=== PATIENT | female | born 1950 | race Caucasian/White ===

== ENCOUNTER 2016-12-22 09:44 | Emergency (ER) | payer MEDICARE, OTHER ==
[2016-12-22] MEDS ORDERED: Morphine 2 MG/ML Syringe IVPUSH ONE ×2 (10:06→11:29)
[2016-12-22] MEDS ORDERED: Sodium Chloride 0.9% 5 ML Syringe FLUSH PRN (10:07)
[2016-12-22] MEDS ORDERED: Aspirin 81 MG Tab.Chew PO ONE (10:07)
--- NOTE | 2016-12-22 10:21 | EDM.PDOC ---
ED HISTORY OF PRESENT ILLNESS - General Chief Complaint: Chest Pain Stated Complaint: CHEST PAIN,DIZZINESS Time Seen by Provider: 12/22/16 10:16 Source of Information: Reports: Patient, Family (, daughter) - History of Present Illness INITIAL COMMENTS - FREE TEXT/NARRATIVE: 66-year-old female presents with chest pain radiating to her left arm and shoulder blade. Onset of symptoms began at 7:30 this morning. She she rates her pain in the out of 10 in severity. She describes the pain as sharp and fullness. She denies shortness of breath or palpations. She denies current headache. She denies nausea, vomiting, epigastric pain, jaw pain. She denies any neurological complaints or weakness in her extremities or difficulty with speech her ambulation. She did not taking any medication for her chest pain at home. She had no relief with rest. She's had no history of prior cardiac issues , but reports that she's had intermittent chest pain on and off for the last 2 weeks. Reports this episode this morning is much more severe and she's had in the past and she has not experienced any arm pain prior to today's episode. She believes she's had a stress test 2 years ago and this was unremarkable. She does have a history of coronary artery disease in her family her father has had a CABG and her brother has had stents for coronary artery disease. She does take verapamil and Topamax both for her headaches and has had these for years. 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 She does have a history of hypothyroidism and is scheduled for a thyroid ultrasound. She takes levothyroxine for her thyroid. Symptom Onset Date: 12/22/16 Symptom Onset Time: 07:30 Timing/Duration: Reports: Hour(s): Severity: moderate Location, General: Reports: chest, back, upper extremity, left Quality: Reports: Pressure, Sharp Improves with: Reports: Medication (nitroglycerin) Worsens with: Reports: None Associated Symptoms (General): Reports: chest pain. Denies: confusion, diaphoresis, fever/chills, nausea/vomiting, shortness of breath, syncope, weakness - Related Data Allergies/ADRs: Allergies Allergy/AdvReac Type Severity Reaction Status Date / Time cortisone [Cortisone] Allergy Headache Verified 12/22/16 10:41 hydrocodone Allergy Itching Verified 12/22/16 10:41 Penicillins Allergy Rash, hives Verified 12/22/16 10:41 wheat Allergy Headache Verified 12/22/16 10:41 environmental allergens Allergy positive Uncoded 12/22/16 10:41 allergy testing to this FOOD ALLERGIES Allergy Headache Uncoded 12/22/16 10:41 Home Meds: Home Meds Ca Cmb No.1/Vit D3/B-6/FA/B12 [Vitamin D3 1,000 Unit] 2,000 unit PO DAILY [History] ClonazePAM [KlonoPIN] 0.5 mg PO BEDTIME PRN 12/21/13 [History] Eletriptan [Relpax] 40 mg PO DAILY PRN 12/21/13 [History] Escitalopram [Lexapro] 20 mg PO DAILY 12/21/13 [History] Fish Oil/[place]-3 Fatty Acids [Fish Oil] 1,000 mg PO DAILY 12/21/13 [History] Gabapentin [Neurontin] 300 - 600 mg PO DAILY PRN 12/21/13 [History] Multivitamin [Daily Multiple Vitamin] 1 tab PO DAILY 12/21/13 [History] Rup Rub 1 applic TOP BID PRN 12/21/13 [History] Topiramate 100 mg PO BEDTIME 12/21/13 [History] Verapamil HCl [Verapamil ER] 360 mg PO BEDTIME 12/21/13 [History] tiZANidine [Zanaflex] 0.5 - 1 tab PO Q8H PRN 12/21/13 [History] valACYclovir HCl [Valtrex] 500 mg PO BID PRN 12/21/13 [History] Ascorbate Calcium [Calcium Ascorbate] 500 mg PO BID 05/09/16 [History] Hydrocortisone Acetate 25 mg RC DAILY PRN 05/09/16 [History] Promethazine [Phenergan] 25 mg PO Q8H PRN 05/09/16 [History] Levothyroxine [Synthroid] 88 mcg PO ACBREAKFAST 12/22/16 [History] Past Medical History HEENT History: Reports: Impaired vision Respiratory History: Reports: Bronchitis, recurrent Gastrointestinal History: Reports: Chronic constipation, GERD, Hemorrhoids, Hiatal hernia, Other (see below) Other Gastrointestinal History: Frank's esophagus Genitourinary History: Reports: UTI, recurrent 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: Polycystic Ovaries, Musculoskeletal History: Reports: Fracture Neurological History: Reports: Migraines Psychiatric History: Reports: Anxiety, Depression Endocrine/Metabolic History: Reports: Hypothyroidism - Infectious Disease History Infectious Disease History: Reports: Chicken pox, Measles - Past Surgical History HEENT Surgical History: Reports: Adenoidectomy, Tonsillectomy GI Surgical History: Reports: Appendectomy, Colonoscopy, Polypectomy Female Surgical History: Reports: Breast reduction, Hysterectomy, Salpingo- oophorectomy Neurological Surgical History: Reports: Lumbar spine Musculoskeletal Surgical History: Reports: None Social & Family History - Tobacco Use Smoking Status *Q: Never Smoker Second Hand Smoke Exposure: Yes - Caffeine Use Caffeine Use: Reports: Coffee, Tea - Alcohol Use Days Per Week of Alcohol Use: 1 Number of Drinks Per Day: 2 Total Drinks Per Week: 2 - Recreational Drug Use Recreational Drug Use: No ED ROS GENERAL - Review of Systems Review Of Systems: See Below Constitutional: Reports: no symptoms. Denies: diaphoresis HEENT: Reports: No symptoms. Denies: Vertigo Respiratory: Reports: No Symptoms Cardiovascular: Reports: Chest pain, Lightheadedness. Denies: Blood pressure problem, Dyspnea on exertion, Edema, Orthopnea, Palpitations, Syncope Endocrine: Reports: fatigue. Denies: high glucose GI/Abdominal: Denies: Abdominal pain, Diarrhea, Nausea, Vomiting : Reports: no symptoms Musculoskeletal: Reports: shoulder pain (left shoulder blade) Skin: Denies: cyanosis, diaphoresis Neurological: Reports: Dizziness. Denies: Confusion, Headache, Numbness, Paresthesia, Syncope, Tingling, Trouble Speaking, Difficulty Walking, Weakness, Change in Speech, Gait Disturbance Psychiatric: Reports: No symptoms Hematologic/Lymphatic: Reports: no symptoms Immunologic: Reports: no symptoms ED EXAM, GENERAL - Physical Exam Exam: See Below Exam Limited By: No limitations General Appearance: alert, WD/WN, no apparent distress Eye Exam: bilateral eye: EOMI, PERRL Ears: normal external exam, normal canal, hearing grossly normal, normal TMs Ear Exam: bilateral ear: TM red Nose: normal inspection, normal mucosa, no blood Throat/Mouth: Normal inspection, Normal lips, Normal teeth, Normal gums, Normal oropharynx, Normal voice, No airway compromise Head: atraumatic, normocephalic Neck: normal inspection, supple, non-tender, full range of motion. No: carotid bruit, limited range of motion, lymphadenopathy (L), lymphadenopathy (R), tender lateral, tender midline, thyromegaly Respiratory/Chest: no respiratory distress, lungs clear, normal breath sounds, no accessory muscle use, chest non-tender Cardiovascular: normal peripheral pulses, regular rate, rhythm, no JVD, no murmur Peripheral Pulses: 2+: carotid (L), carotid (R), radial (L), radial (R), dorsalis pedis (L), dorsalis pedis (R) GI/Abdominal: normal bowel sounds, soft, non tender, no organomegaly, no distention, no abnormal bruit, no mass Back Exam: normal inspection, full range of motion Extremities: normal inspection, normal range of motion, non-tender, no pedal edema, normal capillary refill Neurological: alert, oriented, CN II-XII intact, normal cognition, normal gait, normal reflexes, no motor/sensory deficits Psychiatric: normal affect, normal mood Skin Exam: Warm, Dry, Intact, Normal color, No rash Lymphatic: no adenopathy EKG INTERPRETATION EKG Date: 12/22/16 Time: 10:00 Rhythm: NSR [place]: normal P-wave: present QRS: normal ST-T: normal QT: normal Comparison: NA - no prior EKG EKG Interpretation Comments: Normal sinus rhythm Course - Vital Signs Last Recorded V/S: Last Vital Signs Temp 98 F 12/22/16 09:55 Pulse 64 12/22/16 09:55 Resp 12 12/22/16 09:55 BP 128/58 L 12/22/16 11:41 Pulse Ox 92 L 12/22/16 09:55 - Orders/Labs/Meds Orders: Active Orders 24 hr Category Date Time Status EKG Documentation Completion [RC] ASDIRECTED Care 12/22/16 10:06 Active Peripheral IV Care [RC] . DIRECTED Care 12/22/16 10:07 Active Chest 2V [CR] Stat Exams 12/22/16 10:39 Taken TROPONIN I [CHEM] Timed Lab 12/22/16 12:55 Received Sodium Chloride 0.9% [Syrex Flush] Med 12/22/16 10:07 Active 5 ml FLUSH Q8HR PRN Peripheral IV Insertion Adult [OM.PC] Routine Oth 12/22/16 10:07 Ordered EKG 12 Lead [EK] Routine Ther 12/22/16 10:06 Ordered Medication Orders Sodium Chloride (Syrex Flush) 5 ml FLUSH Q8HR PRN PRN Reason: Keep Vein Open Last Admin: 12/22/16 10:26 Dose: 5 ml Labs: Laboratory Tests 12/22/16 12/22/16 12/22/16 Range/Units 10:15 10:15 10:15 WBC 6.0 (5.0-10.0) 10^3/uL RBC 4.25 (3.80-5.50) 10^6/uL Hgb 13.9 (12.0-16.0) g/dL Hct 40.7 (37.0-47.0) % MCV 95.8 H (82.0-92.0) fL MCH 32.7 H (27.0-31.0) pg MCHC 34.2 (32.0-36.0) g/dL RDW 12.4 (11.5-14.5) % Plt Count 278 (150-300) 10^3/uL MPV 8.2 (7.4-10.4) fL Neut % (Auto) 57.1 (50.0-70.0) % Lymph % (Auto) 26.1 (20.0-40.0) % [place] % (Auto) 8.9 H (2.0-8.0) % Eos % (Auto) 6.9 H (1.0-3.0) % Baso % (Auto) 1.0 (0.0-1.0) % Neut # (Auto) 3.4 (2.5-7.0) 10^3/uL Lymph # (Auto) 1.6 (1.0-4.0) 10^3/uL [place] # (Auto) 0.5 (0.1-0.8) 10^3/uL Eos # (Auto) 0.4 H (0.1-0.3) 10^3/uL Baso # (Auto) 0.1 (0.0-0.1) 10^3/uL D-Dimer, Quantitative (<400) ng/mL Sodium 140 (136-145) mmol/L Potassium 4.0 (3.3-5.3) mmol/L Chloride 103 (98-115) mmol/L Carbon Dioxide 24.8 (21.0-32.0) mmol/L BUN 14 (6-25) mg/dL Creatinine 0.74 (0.51-1.17) mg/dL Est Cr Clr Drug Dosing 54.44 mL/min Estimated GFR (MDRD) > 60 mL/min Glucose 95 (70-110) mg/dL Calcium 9.1 (8.7-10.3) mg/dL Total Bilirubin 0.5 (0.2-1.0) mg/dL AST 22 (15-37) U/L ALT 25 (12-78) U/L Alkaline Phosphatase 72 (46-116) IU/L Creatine Kinase 111 (26-276) U/L CK-MB (CK-2) 0.80 (0.00-4.30) ng/mL Troponin I 0.08 H* (0.00-0.070) ng/mL Total Protein 6.8 (6.4-8.2) g/dL Albumin 4.03 (3.00-4.80) g/dL TSH, Ultra Sensitive 0.580 (0.340-4.820) uIU/mL /02/02 Range/Units 10:15 WBC (5.0-10.0) 10^3/uL RBC (3.80-5.50) 10^6/uL Hgb (12.0-16.0) g/dL Hct (37.0-47.0) % MCV (82.0-92.0) fL MCH (27.0-31.0) pg MCHC (32.0-36.0) g/dL RDW (11.5-14.5) % Plt Count (150-300) 10^3/uL MPV (7.4-10.4) fL Neut % (Auto) (50.0-70.0) % Lymph % (Auto) (20.0-40.0) % [place] % (Auto) (2.0-8.0) % Eos % (Auto) (1.0-3.0) % Baso % (Auto) (0.0-1.0) % Neut # (Auto) (2.5-7.0) 10^3/uL Lymph # (Auto) (1.0-4.0) 10^3/uL [place] # (Auto) (0.1-0.8) 10^3/uL Eos # (Auto) (0.1-0.3) 10^3/uL Baso # (Auto) (0.0-0.1) 10^3/uL D-Dimer, Quantitative < 100 (<400) ng/mL Sodium (136-145) mmol/L Potassium (3.3-5.3) mmol/L Chloride (98-115) mmol/L Carbon Dioxide (21.0-32.0) mmol/L BUN (6-25) mg/dL Creatinine (0.51-1.17) mg/dL Est Cr Clr Drug Dosing mL/min Estimated GFR (MDRD) mL/min Glucose (70-110) mg/dL Calcium (8.7-10.3) mg/dL Total Bilirubin (0.2-1.0) mg/dL AST (15-37) U/L ALT (12-78) U/L Alkaline Phosphatase (46-116) IU/L Creatine Kinase (26-276) U/L CK-MB (CK-2) (0.00-4.30) ng/mL Troponin I (0.00-0.070) ng/mL Total Protein (6.4-8.2) g/dL Albumin (3.00-4.80) g/dL TSH, Ultra Sensitive (0.340-4.820) uIU/mL Meds: Medications Generic Name Dose Route Start Last Admin Trade Name Freq PRN Reason Stop Dose Admin Sodium Chloride 5 ml 12/22/16 10:07 12/22/16 10:26 Syrex Flush FLUSH 5 ml Q8HR PRN Administration Keep Vein Open Discontinued Medications Generic Name Dose Route Start Last Admin Trade Name Freq PRN Reason Stop Dose Admin Al Hydroxide/Mg Hydroxide 45 ml 12/22/16 10:26 12/22/16 10:32 Gi Cocktail PO 12/22/16 10:27 45 ml ONETIME ONE Administration Al Hydroxide/Mg Hydroxide 45 ml 12/22/16 10:24 12/22/16 11:40 Gi Cocktail PO 12/22/16 10:25 Not Given ONETIME ONE Aspirin 324 mg 12/22/16 10:07 12/22/16 10:18 Aspirin PO 12/22/16 10:08 324 mg ONETIME ONE Administration Morphine Sulfate 2 mg 12/22/16 10:06 12/22/16 10:19 Morphine IVPUSH 12/22/16 10:07 2 mg ONETIME ONE Administration Morphine Sulfate 2 mg 12/22/16 11:29 12/22/16 11:41 Morphine IVPUSH 12/22/16 11:30 2 mg ONETIME ONE Administration Morphine Sulfate Confirm 12/22/16 11:29 12/22/16 11:40 Morphine Administered 12/22/16 11:30 Not Given Dose 2 mg .ROUTE .STK-MED ONE Nitroglycerin 0.4 mg 12/22/16 10:29 12/22/16 10:31 Nitrostat SL 12/22/16 10:40 0.4 mg Q5M PRN Administration Chest Pain Nitroglycerin Confirm 12/22/16 10:31 12/22/16 11:41 Nitrostat Administered 12/22/16 10:32 Not Given Dose 0.4 mg .ROUTE .STK-MED ONE - Re-Assessments/Exams Free Text/Narrative Re-Assessment/Exam: 12/22/16 13:14 Patient was given a 4 chewable aspirin upon arrival. IV access was initiated and she was given 2 mg of morphine. She rated her pain a 6/10 and no change. She was given sublingual nitroglycerin and she reports her pain was a 1/10. EKG showed normal sinus rhythm lab work was ordered and troponin was high end of normal 0.08. Approximately one hour her pain started to increase again in the left chest and shoulder blade radiating and again 6/10 she was given 2 more milligrams of morphine and another sublingual nitroglycerin. She reports improvement again of her chest pain with a sublingual nitroglycerin. Transfer was initiated as she is having recurrence of pain. [facility] the patient. Recommended beginning IV heparin. I thousand bolus of IV heparin was given. Heparin was run at 10 mL an hour. Ground ambulance transfer was initiated. EKG was repeated and again shows normal sinus rhythm at 1250 in the afternoon. Troponin was redrawn and currently pending. Her remaining lab work CBC, BMP, d-dimer, TSH are all normal. Departure - Departure Time of Disposition: 13:33 Disposition: DC/Tfer to Critical Access [facility] Reason for Transfer *Q: Primary PCI Indicated Condition: good Clinical Impression: Unstable angina Referrals: Haylee Andrade, [employer] [Primary Care Provider] - Forms: ED Department Discharge - My Orders Last 24 Hours: My Active Orders 12/22/16 10:06 EKG Documentation Completion [RC] ASDIRECTED EKG 12 Lead [EK] Routine 12/22/16 10:07 Peripheral IV Care [RC] . DIRECTED Sodium Chloride 0.9% [Syrex Flush] 5 ml FLUSH Q8HR PRN Peripheral IV Insertion Adult [OM.PC] Routine 12/22/16 10:39 Chest 2V [CR] Stat 12/22/16 12:55 TROPONIN I [CHEM] Timed - Assessment/Plan Last 24 Hours: My Active Orders 12/22/16 10:06 EKG Documentation Completion [RC] ASDIRECTED EKG 12 Lead [EK] Routine 12/22/16 10:07 Peripheral IV Care [RC] . DIRECTED Sodium Chloride 0.9% [Syrex Flush] 5 ml FLUSH Q8HR PRN Peripheral IV Insertion Adult [OM.PC] Routine 12/22/16 10:39 Chest 2V [CR] Stat 12/22/16 12:55 TROPONIN I [CHEM] Timed Assessment:: Unstable angina Plan: Transfer to a [facility]. Dr Herbert accepted transfer. Patient is in stable condition,she was started on IV heparin 5000 bolus and heparin drip.
[2016-12-22] MEDS ORDERED: GI Cocktail 45 ML BOTTLE PO ONE ×2 (10:24→10:26)
[2016-12-22] MEDS ORDERED: Nitroglycerin 0.4 MG Tab.SL SL PRN (10:29)
[2016-12-22] MEDS ORDERED: Nitroglycerin 0.4 MG Tab.SL ONE (10:31)
[2016-12-22 10:55] LABS: CHLORIDE,CL 103 mmol/L (98-115); SODIUM,NA 140 mmol/L (136-145)
[2016-12-22] MEDS ORDERED: Morphine 2 MG/ML Syringe ONE (11:29)
[2016-12-22] MEDS ORDERED: Heparin Sodium/D5W 25,000 UNITS/250 ML BAG IV SCH (12:45)
[2016-12-22] MEDS ORDERED: Heparin Sodium 5,000 Units/ML Vial IVPUSH ONE (12:45)
[2016-12-22 16:37] VITALS: BP 127/59
== END 2016-12-22 13:00 ==
LOC: KA.ED 09:44
DX: I20.0 Unstable angina (principal); K21.9 Gastro-esophageal reflux disease without esophagitis; F41.9 Anxiety disorder, unspecified; F32.9 Major depressive disorder, single episode, unspecified; E03.9 Hypothyroidism, unspecified; Z88.0 Allergy status to penicillin; Z88.8 Allergy status to other drugs, medicaments and biological substances; Z79.899 Other long term (current) drug therapy
CPT/HCPCS: 36415; 71020; 80053; 82550; 82553; 84443; 84484; 85025; 85379; 93005; 96374; 96375; 96376; 99285; A9270; J1644; J2270

== ENCOUNTER 2017-08-07 06:50 | Emergency (ER) | payer MEDICARE, OTHER ==
[2017-08-07] MEDS ORDERED: Sodium Chloride 0.9% 1,000 ML IV ONE (07:19)
[2017-08-07] MEDS ORDERED: HYDROmorphone 1 MG/ML Syringe IVPUSH ONE (07:19)
[2017-08-07] MEDS ORDERED: Ondansetron 4 MG/2 ML SDV IVPUSH ONE (07:20)
--- NOTE | 2017-08-07 07:32 | EDM.PDOC ---
ED HPI GENERAL MEDICAL PROBLEM - General Chief Complaint: Gastrointestinal Problem Stated Complaint: ABDOMINAL PAIN Time Seen by Provider: 08/07/17 07:15 Source of Information: Reports: Patient History Limitations: Reports: No Limitations - History of Present Illness INITIAL COMMENTS - FREE TEXT/NARRATIVE: 67 YO WF presents to ER complaining of epigastric abdominal pain x 30 minutes. Pt states she woke from sleep with severe epigastric pain radiating to her back with associated nausea without vomiting. Pt denies any chest pain, shortness of breath, dizziness or diaphoresis. Pt denies any previous similar episode. Pt states she had a lap gabby 6-7 years ago and denies any history of pancreatitis. Pt denies constipation or diarrhea with last BM last night before bed. Onset: Sudden Onset Date: 08/07/17 Onset Time: 06:30 Location: Reports: Abdomen, Back Quality: Reports: Stabbing Severity: Moderate Improves with: Reports: None Worsens with: Reports: None Associated Symptoms: Reports: Nausea/Vomiting - Related Data Allergies Allergy/AdvReac Type Severity Reaction Status Date / Time cortisone [Cortisone] Allergy Headache Verified 08/07/17 07:46 hydrocodone Allergy Itching Verified 08/07/17 07:46 Penicillins Allergy Rash, hives Verified 08/07/17 07:46 wheat Allergy Headache Verified 08/07/17 07:46 environmental allergens Allergy positive Uncoded 12/22/16 10:41 allergy testing to this FOOD ALLERGIES Allergy Headache Uncoded 12/22/16 10:41 Home Meds: Home Meds Ca Cmb No.1/Vit D3/B-6/FA/B12 [Vitamin D3 1,000 Unit] 2,000 unit PO DAILY [History] ClonazePAM [KlonoPIN] 0.5 mg PO BEDTIME PRN 12/21/13 [History] Eletriptan [Relpax] 40 mg PO DAILY PRN 12/21/13 [History] Escitalopram [Lexapro] 20 mg PO DAILY 12/21/13 [History] Fish Oil/[place]-3 Fatty Acids [Fish Oil] 1,000 mg PO DAILY 12/21/13 [History] Gabapentin [Neurontin] 300 - 600 mg PO DAILY PRN 12/21/13 [History] Multivitamin [Daily Multiple Vitamin] 1 tab PO DAILY 12/21/13 [History] Rup Rub 1 applic TOP BID PRN 12/21/13 [History] Topiramate 100 mg PO BEDTIME 12/21/13 [History] Verapamil HCl [Verapamil ER] 360 mg PO BEDTIME 12/21/13 [History] tiZANidine [Zanaflex] 0.5 - 1 tab PO Q8H PRN 12/21/13 [History] valACYclovir HCl [Valtrex] 500 mg PO BID PRN 12/21/13 [History] Ascorbate Calcium [Calcium Ascorbate] 500 mg PO BID 05/09/16 [History] Hydrocortisone Acetate 25 mg RC DAILY PRN 05/09/16 [History] Promethazine [Phenergan] 25 mg PO Q8H PRN 05/09/16 [History] Levothyroxine [Synthroid] 88 mcg PO ACBREAKFAST 12/22/16 [History] Famotidine [Pepcid] 20 mg PO BID #30 tablet 08/07/17 [Rx] Past Medical History HEENT History: Reports: Impaired Vision Respiratory History: Reports: Bronchitis, Recurrent Gastrointestinal History: Reports: Chronic Constipation, GERD, Hemorrhoids, Hiatal Hernia, Other (See Below) Other Gastrointestinal History: Frank's esophagus Genitourinary History: Reports: UTI, Recurrent 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: Polycystic Ovaries, Musculoskeletal History: Reports: Fracture Neurological History: Reports: Migraines Psychiatric History: Reports: Anxiety, Depression Endocrine/Metabolic History: Reports: Hypothyroidism - Infectious Disease History Infectious Disease History: Reports: Chicken Pox, Measles - Past Surgical History Female Surgical History: Reports: Breast Reduction, Hysterectomy, Salpingo- Oophorectomy Neurological Surgical History: Reports: Lumbar Spine Social & Family History - Tobacco Use Smoking Status *Q: Never Smoker Second Hand Smoke Exposure: Yes - Caffeine Use Caffeine Use: Reports: Coffee, Tea Caffeine Use Comment: mostly decaffenated coffee - Alcohol Use Days Per Week of Alcohol Use: 1 Number of Drinks Per Day: 2 Total Drinks Per Week: 2 - Recreational Drug Use Recreational Drug Use: No ED ROS GENERAL - Review of Systems Review Of Systems: See Below Constitutional: Reports: No Symptoms HEENT: Reports: No Symptoms Respiratory: Reports: No Symptoms Cardiovascular: Reports: No Symptoms Endocrine: Reports: No Symptoms GI/Abdominal: Reports: Abdominal Pain, Nausea : Reports: No Symptoms Musculoskeletal: Reports: No Symptoms Skin: Reports: No Symptoms Neurological: Reports: No Symptoms Psychiatric: Reports: No Symptoms Hematologic/Lymphatic: Reports: No Symptoms Immunologic: Reports: No Symptoms ED EXAM, GENERAL - Physical Exam Exam: See Below Exam Limited By: No Limitations General Appearance: Alert, WD/WN, No Apparent Distress Head: Atraumatic, Normocephalic Neck: Normal Inspection, Supple, Non-Tender, Full Range of Motion Respiratory/Chest: No Respiratory Distress, Lungs Clear, Normal Breath Sounds, No Accessory Muscle Use, Chest Non-Tender Cardiovascular: Normal Peripheral Pulses, Regular Rate, Rhythm, No Edema, No Gallop, No JVD, No Murmur, No Rub GI/Abdominal: Normal Bowel Sounds, Soft, No Organomegaly, No Distention, No Abnormal Bruit, No Mass, Pelvis Stable, Tender (epigastrum) Back Exam: Normal Inspection, Full Range of Motion, NT Extremities: Normal Inspection, Normal Range of Motion, Non-Tender, Normal Capillary Refill, No Pedal Edema Neurological: Alert, Oriented, CN II-XII Intact, Normal Cognition, Normal Gait, Normal Reflexes, No Motor/Sensory Deficits Psychiatric: Normal Affect, Normal Mood Skin Exam: Warm, Dry, Intact, Normal Color, No Rash Lymphatic: No Adenopathy EKG INTERPRETATION EKG Date: 08/07/17 Time: 07:05 Rhythm: NSR Rate (Beats/Min): 65 [place]: Normal P-Wave: Present QRS: Normal ST-T: Normal QT: Normal Comparison: No Change Course - Vital Signs Last Recorded V/S: Last Vital Signs Temp 35.6 C 08/07/17 07:00 Pulse 69 08/07/17 07:00 Resp 20 08/07/17 07:00 BP 110/78 08/07/17 07:00 Pulse Ox 94 L 08/07/17 07:00 - Orders/Labs/Meds Orders: Active Orders 24 hr Category Date Time Status EKG Documentation Completion [RC] ASDIRECTED Care 08/07/17 07:31 Active URINALYSIS W/MICROSCOPIC [UA W/MICROSCOPIC] [URIN] Stat Lab 08/07/17 07:30 Uncollected Sodium Chloride 0.9% [Normal Saline] 1,000 ml Med 08/07/17 07:19 Active IV .BOLUS EKG 12 Lead [EK] Routine Ther 08/07/17 07:31 Ordered Medication Orders Sodium Chloride (Normal Saline) 1,000 mls @ 999 mls/hr IV .BOLUS ONE Stop: 08/07/17 08:19 Last Admin: 08/07/17 07:10 Dose: 999 mls/hr Labs: Laboratory Tests 08/07/17 08/07/17 Range/Units 07:00 07:00 WBC 6.0 (5.0-10.0) 10^3/uL RBC 4.07 (3.80-5.50) 10^6/uL Hgb 12.6 (12.0-16.0) g/dL Hct 38.7 (37.0-47.0) % MCV 95.2 H (82.0-92.0) fL MCH 31.0 (27.0-31.0) pg MCHC 32.5 (32.0-36.0) g/dL RDW 12.7 (11.5-14.5) % Plt Count 253 (150-300) 10^3/uL MPV 8.2 (7.4-10.4) fL Neut % (Auto) 46.5 L (50.0-70.0) % Lymph % (Auto) 37.9 (20.0-40.0) % [place] % (Auto) 9.5 H (2.0-8.0) % Eos % (Auto) 5.1 H (1.0-3.0) % Baso % (Auto) 1.0 (0.0-1.0) % Neut # (Auto) 2.7 (2.5-7.0) 10^3/uL Lymph # (Auto) 2.3 (1.0-4.0) 10^3/uL [place] # (Auto) 0.6 (0.1-0.8) 10^3/uL Eos # (Auto) 0.3 (0.1-0.3) 10^3/uL Baso # (Auto) 0.1 (0.0-0.1) 10^3/uL Sodium 143 (136-145) mmol/L Potassium 3.6 (3.3-5.3) mmol/L Chloride 107 (98-115) mmol/L Carbon Dioxide 24.0 (21.0-32.0) mmol/L BUN 19 (6-25) mg/dL Creatinine 0.78 (0.51-1.17) mg/dL Est Cr Clr Drug Dosing TNP Estimated GFR (MDRD) > 60 mL/min Glucose 107 (70-110) mg/dL Calcium 9.2 (8.7-10.3) mg/dL Total Bilirubin 0.3 (0.2-1.0) mg/dL AST 59 H (15-37) U/L ALT 46 (12-78) U/L Alkaline Phosphatase 85 (46-116) IU/L Total Protein 6.9 (6.4-8.2) g/dL Albumin 3.90 (3.00-4.80) g/dL Lipase 144 (73-393) U/L Meds: Medications Generic Name Dose Route Start Last Admin Trade Name Freq PRN Reason Stop Dose Admin Sodium Chloride 1,000 mls @ 999 mls/hr 08/07/17 07:19 08/07/17 07:10 Normal Saline IV 08/07/17 08:19 999 mls/hr .BOLUS ONE Administration Discontinued Medications Generic Name Dose Route Start Last Admin Trade Name Freq PRN Reason Stop Dose Admin Hydromorphone HCl 1 mg 08/07/17 07:19 08/07/17 07:05 Dilaudid IVPUSH 08/07/17 07:20 1 mg ONETIME ONE Administration Ondansetron HCl 4 mg 08/07/17 07:20 08/07/17 07:10 Zofran IVPUSH 08/07/17 07:21 4 mg ONETIME ONE Administration Departure - Departure Time of Disposition: 07:53 Disposition: Home, Self-Care 01 Preliminary Cause of *Q: Cardiac Arrest Condition: Good Clinical Impression: Abdominal pain Qualifiers: Abdominal location: epigastric Qualified Code(s): R10.13 - Epigastric pain Gastritis Qualifiers: Gastritis type: unspecified gastritis Chronicity: acute Gastritis bleeding: without bleeding Qualified Code(s): K29.00 - Acute gastritis without bleeding - Discharge Information Prescriptions: Famotidine [Pepcid] 20 mg PO BID #30 tablet Instructions: Gastritis, Adult, [id number], Abdominal Pain, Adult Referrals: Donna Jansen PA-C [Primary Care Provider] - Forms: ED Department Discharge - My Orders Last 24 Hours: My Active Orders 08/07/17 07:19 Sodium Chloride 0.9% [Normal Saline] 1,000 ml IV .BOLUS 08/07/17 07:30 URINALYSIS W/MICROSCOPIC [UA W/MICROSCOPIC] [URIN] Stat 08/07/17 07:31 EKG Documentation Completion [RC] ASDIRECTED EKG 12 Lead [EK] Routine - Assessment/Plan Last 24 Hours: My Active Orders 08/07/17 07:19 Sodium Chloride 0.9% [Normal Saline] 1,000 ml IV .BOLUS 08/07/17 07:30 URINALYSIS W/MICROSCOPIC [UA W/MICROSCOPIC] [URIN] Stat 08/07/17 07:31 EKG Documentation Completion [RC] ASDIRECTED EKG 12 Lead [EK] Routine Assessment:: 1. abdominal pain 2. gastritis Plan: 1. discharge home 2. pepcid 20mg PO BID 3. follow up with Donna Roberts this week for recheck 4. return to ER for worsening symptoms
[2017-08-07 07:36] LABS: CHLORIDE,CL 107 mmol/L (98-115); SODIUM,NA 143 mmol/L (136-145)
[2017-08-07 07:45] VITALS: BP 110/78
== END 2017-08-07 08:10 | disposition home or self-care (01) ==
LOC: KA.ED 06:50
DX: K29.00 Acute gastritis without bleeding (principal); Z88.5 Allergy status to narcotic agent; Z88.0 Allergy status to penicillin; Z88.8 Allergy status to other drugs, medicaments and biological substances; Z79.899 Other long term (current) drug therapy
CPT/HCPCS: 80053; 83690; 85025; 96361; 96374; 96375; 99284; J1170; J2405; J7030; 93005

== ENCOUNTER 2018-12-30 09:48 | Day surgery (SDC) | payer MEDICARE, OTHER ==
[~2018-12-30 09:48] MED LIST: Lactated Ringers 1,000 ML IV SCH; Sodium Chloride 0.9% 10 ML Syringe FLUSH PRN
[2018-12-30] MEDS ORDERED: Propofol 200 MG/20 ML SDV ONE (10:02)
[2018-12-30] MEDS ORDERED: Midazolam 1 MG/ML 2 ML SDV ONE (10:02)
[2018-12-30] MEDS ORDERED: Midazolam 1 MG/ML 2 ML SDV IV ONE (11:06)
[2018-12-30] MEDS ORDERED: Propofol 200 MG/20 ML SDV IV ONE (11:06)
[2018-12-30] MEDS ORDERED: Lidocaine 2% 5 ML SDV INJECT ONE (11:06)
--- NOTE | 2018-12-30 11:14 | PCM.PN ---
- General Info Date of Service: 12/30/18 - Review of Systems Systems Review Comment:: 68-year-old female referred for EGD and colonoscopy. Patient has a history of anti-reflux procedure for acid reflux. She has noted some increased symptoms of upper abdominal bloating and fullness. She also has a history of colon polyps as well as a previous colon resection for benign disease. She is scheduled for colonoscopy as well. I have discussed the proposed EGD and colonoscopy with the patient. She agrees to proceed accepting risks. Her recent history and physical is reviewed and no significant changes are noted. - Patient Data Med Orders - Current: Current Medications Lactated Ringer's (Ringers, Lactated) 1,000 mls @ 30 mls/hr IV ASDIRECTED SHIKHA Sodium Chloride (Saline Flush) 10 ml FLUSH Q8HR PRN PRN Reason: keep vein open Discontinued Medications Midazolam HCl (Versed 1 Mg/Ml) Confirm Administered Dose 2 mg .ROUTE .STK-MED ONE Stop: 12/30/18 10:03 Propofol (Diprivan 20 Ml) Confirm Administered Dose 400 mg .ROUTE .STK-MED ONE Stop: 12/30/18 10:03 - Problem List Review Problem List Initiated/Reviewed/Updated: Yes - My Orders Last 24 Hours: My Active Orders 12/29/18 13:31 Resuscitation Status Routine 12/30/18 09:45 Patient to Empty Bladder [RC] ASDIRECTED Peripheral IV Care [RC] . DIRECTED Verify Patient Consent Obtain [RC] ASDIRECTED Vital Signs [RC] PER UNIT ROUTINE Lactated Ringers [Ringers, Lactated] 1,000 ml IV ASDIRECTED Sodium Chloride 0.9% [Saline Flush] 10 ml FLUSH Q8HR PRN Peripheral IV Insertion Adult [OM.PC] Routine 12/30/18 Breakfast Nothing Per Oral Diet [DIET] - Assessment Assessment:: Abdominal bloating History of acid reflux with prior anti-reflux procedure Change in bowel habits and history of colon polyps - Plan Plan:: EGD and colonoscopy
--- NOTE | 2018-12-30 12:02 | PCM.OPNOTE ---
- General Post-Op/Procedure Note Date of Surgery/Procedure: 12/30/18 Operative Procedure(s): EGD with Biopsy. Colonoscopy Findings: Intact Anti-reflux procedure wrap Frank's Esophagus without inflammation or nodule Moderate sized hemorrhoids Normal post op colon Pre Op Diagnosis: History of GERD. Change in Bowel Habits Post-Op Diagnosis: Frank's Esophagus. Hemorrhoids. Normal post op colon Anesthesia Technique: MAC Primary Surgeon: Jose Prado Pathology: Biopsies of Gastric Antrum and GE Jct. EBL in mLs: 3 Complications: None Condition: Good
[2018-12-30 15:23] VITALS: BP 132/69
--- NOTE | 2018-12-30 17:09 | OR ---
DATE OF SURGERY: 12/30/2018 SURGEON: Jose Prado MD PREOPERATIVE DIAGNOSIS: Abdominal bloating with history of Frank's esophagus and change in bowel habits. POSTOPERATIVE DIAGNOSIS: Frank's esophagus, normal postoperative colon, and hemorrhoids. OPERATION PERFORMED: Esophagogastroduodenoscopy with biopsy and colonoscopy. INDICATIONS FOR SURGERY: This 68-year-old female who has been having some upper abdominal fullness and bloating sensation. She does have a known history of Frank's esophagus and a previous anti-reflux procedure and is referred for EGD. She also has a known history of colon polyps and has been having change in her bowel habits recently and colonoscopy is planned as well. FINDINGS: On upper endoscopy, the patient does have visible Frank's changes in the lower part of her esophagus. These extend for approximately 2 cm. No nodules or acute inflammation was seen. The patient has had a Chantelle wrap, anti - reflux procedure, and the wrap appears to be intact without visible indication of breakdown. The gastric mucosa and the remainder of the esophagus mucosa appear normal as does the duodenum. On colonoscopy, the patient has had a prior left colon resection. The remaining colon segments appear normal. The anastomosis is normal without indication of stenosis and no polyps were seen. The patient has moderate-sized external and internal hemorrhoids. DESCRIPTION OF PROCEDURE: The patient was taken to the operating room. She was given intravenous sedation and with her in the left lateral decubitus position, the esophagus was intubated with the Olympus gastroscope. This was carefully advanced under direct visualization through the esophagus, stomach, and into the duodenum where examination to the third portion was performed. After carefully examining the duodenum, the scope was withdrawn back into the stomach where full examination including retroflexed examination of the fundus was performed. Random biopsies of the gastric antrum were taken to rule out H pylori. At the GE junction, the area of the anti-reflux procedure was carefully examined. The Frank's segment was biopsied to rule out dysplasia. The esophagus was then re - examined as the scope was removed, and attention was turned to the colon. Digital rectal exam shows no rectal masses, although external hemorrhoids were noted. The Olympus colonoscope was inserted into the rectum. Retroflexed examination of the rectal canal was performed. The scope was then carefully advanced under direct visualization through the entire length of the colon until her cecum is reached. This proceeded without difficulty. The patient has had a significant segment of her left colon removed. The anastomosis was easily cannulated. The cecum was identified. The ileocecal valve and appendiceal orifice were reviewed. The light was noted to transilluminate the abdominal wall in the right lower quadrant. The ileocecal valve was cannulated and the terminal ileum also examined. The scope was then slowly withdrawn sequentially re-examining the colonic segments until the entire colon and rectum had been fully examined. The scope was removed, and the patient was taken from the operating room in satisfactory condition. ESTIMATED BLOOD LOSS: 3 mL. COMPLICATIONS: None. PROGNOSIS: Good. /[id number]/MODL MTDD
== END 2018-12-30 13:33 | disposition home or self-care (01) ==
LOC: KA.SDS 09:48
PROVIDERS: ATTEND Surgery
DX: K22.70 Barrett's esophagus without dysplasia (principal); K21.0 Gastro-esophageal reflux disease with esophagitis; K31.89 Other diseases of stomach and duodenum; K64.8 Other hemorrhoids; K64.4 Residual hemorrhoidal skin tags; R19.4 Change in bowel habit; E03.9 Hypothyroidism, unspecified; F41.9 Anxiety disorder, unspecified; F32.9 Major depressive disorder, single episode, unspecified; J45.909 Unspecified asthma, uncomplicated; G43.909 Migraine, unspecified, not intractable, without status migrainosus; Z88.5 Allergy status to narcotic agent; Z88.0 Allergy status to penicillin; Z88.8 Allergy status to other drugs, medicaments and biological substances; Z90.49 Acquired absence of other specified parts of digestive tract; Z86.010 Personal history of colon polyps; Z79.84 Long term (current) use of oral hypoglycemic drugs; Z79.899 Other long term (current) drug therapy; Z98.890 Other specified postprocedural states
CPT/HCPCS: 00813; J2001; J2250; J2704

== ENCOUNTER 2019-12-07 20:40 | Emergency (ER) | payer MEDICARE, OTHER ==
[2019-12-07 20:49] VITALS: BP 187/79; PULSE 73
--- NOTE | 2019-12-07 20:54 | EDM.PDOC ---
ED HPI GENERAL MEDICAL PROBLEM - General Chief Complaint: Headache Stated Complaint: gill/migraine Time Seen by Provider: 12/07/19 20:54 Source of Information: Reports: Patient History Limitations: Reports: No Limitations - History of Present Illness INITIAL COMMENTS - FREE TEXT/NARRATIVE: Seen in the clinic today with reevaluation. Was started on methylprednisone in attempt to reduce inflammation as headache seemingly are starting in the scapular region paraspinal muscle region, and radiating into her head. Chronic headache history there is seemingly worsened since she has been unable to get massage due to the pandemic. Underwent trigger point injections we believe on the which made some improvement but did not resolve tension. Was trying to get massage but due to pandemic restrictions it is not been essentual service although in this case, it is proving to be essentially necessary. Her medication and visit rate is up since unable to get massage. Onset: Unknown/Unsure Duration: Week(s):, Chronic Location: Reports: Head, Neck Quality: Reports: Pressure, Sharp Severity: Moderate Improves with: Reports: None Worsens with: Reports: Movement Context: Reports: Other Associated Symptoms: Reports: No Other Symptoms - Related Data Allergies Allergy/AdvReac Type Severity Reaction Status Date / Time bacitracin [From Cortisporin] Allergy Cannot Verified 12/07/19 20:50 Remember cortisone [Cortisone] Allergy Headache Verified 12/07/19 20:50 hydrocodone Allergy Itching Verified 12/07/19 20:50 hydrocortisone Allergy Cannot Verified 12/07/19 20:50 [From Cortisporin] Remember neomycin [From Cortisporin] Allergy Cannot Verified 12/07/19 20:50 Remember Penicillins Allergy Rash, hives Verified 12/07/19 20:50 pneumococcal vaccine Allergy Cannot Verified 12/07/19 20:50 [From Prevnar 13 (PF)] Remember polymyxin B Allergy Cannot Verified 12/07/19 20:50 [From Cortisporin] Remember wheat Allergy Headache Verified 12/07/19 20:50 environmental allergens Allergy positive Uncoded 12/30/18 10:16 allergy testing to this FOOD ALLERGIES Allergy Headache Uncoded 12/30/18 10:16 Home Meds: Home Meds ClonazePAM [KlonoPIN] 0.5 mg PO BEDTIME PRN 12/21/13 [History] Escitalopram [Lexapro] 20 mg PO DAILY 12/21/13 [History] Topiramate 150 mg PO BEDTIME 12/21/13 [History] Verapamil HCl [Verapamil ER] 300 mg PO BEDTIME 12/21/13 [History] tiZANidine [Zanaflex] 4 mg PO DAILY PRN 12/21/13 [History] valACYclovir HCl [Valtrex] 500 mg PO ASDIRECTED PRN 12/21/13 [History] Levothyroxine [Synthroid] 88 mcg PO ACBREAKFAST 12/22/16 [History] Acyclovir [Zovirax 5% Oint] 1 applic TOP ASDIRECTED 06/02/18 [History] Albuterol Sulfate 2.5 mg IH ASDIRECTED 06/02/18 [History] Codeine Phosphate/Guaifenesin [Cheratussin AC Syrup] 1 each PO Q4H PRN 06/02/18 [History] Dexlansoprazole [Dexilant] 60 mg PO DAILY 06/02/18 [History] Eletriptan HBr 40 mg PO ASDIRECTED PRN 06/02/18 [History] Hydrocortisone Acetate [Anusol-Hc] 1 supp RC Q4H PRN 06/02/18 [History] Hydrocortisone [Proctosol-HC] 1 applic TOP QID PRN 06/02/18 [History] Fexofenadine/Pseudoephedrine [Krupa-D 12 Hour] 1 each PO ASDIRECTED PRN [History] Fluticasone Propionate [Flonase Allergy Relief] 9.9 ml NS ASDIRECTED PRN [History] Gabapentin [Neurontin] 600 mg PO ASDIRECTED PRN 12/24/18 [History] Levothyroxine [Synthroid] 132 mcg PO WEEKLY 12/24/18 [History] metFORMIN HCl [Metformin HCl] 500 mg PO BID 12/24/18 [History] Past Medical History HEENT History: Reports: Impaired Vision Cardiovascular History: Reports: Angina Respiratory History: Reports: Bronchitis, Recurrent Gastrointestinal History: Reports: Chronic Constipation, GERD, Hemorrhoids, Hiatal Hernia, Other (See Below) Other Gastrointestinal History: Frank's esophagus Genitourinary History: Reports: UTI, Recurrent SCRIPT READER History: Reports: Polycystic Ovaries, Musculoskeletal History: Reports: Fracture Neurological History: Reports: Migraines Psychiatric History: Reports: Anxiety, Depression Endocrine/Metabolic History: Reports: Hypothyroidism Hematologic History: Reports: None Oncologic (Cancer) History: Reports: None - Infectious Disease History Infectious Disease History: Reports: None - Past Surgical History Head Surgeries/Procedures: Reports: None Female Surgical History: Reports: Breast Reduction, Hysterectomy, Salpingo- Oophorectomy Neurological Surgical History: Reports: Lumbar Spine Social & Family History - Family History Family Medical History: Noncontributory - Caffeine Use Caffeine Use: Reports: Coffee, Tea Caffeine Use Comment: mostly decaffenated coffee ED ROS GENERAL - Review of Systems Review Of Systems: Comprehensive ROS is negative, except as noted in HPI. ED EXAM, GENERAL - Physical Exam Exam: See Below Free Text/Narrative:: Alert oriented in mild distress. HEENT is negative to discharge nor deformity. PERRLA no icterus no injection, minimal photophobia to examination. [place] moist mucous membranes. Neck soft supple with no lymphadenopathy tension on the posterior aspect radiating into the base of the skull in the occipital region. Tension in the scapular region bilateral. Tension feeling to her scalp pulling from the occipital region inducing her headache. Thorax is clear with no wheezes no crackles. Cardiac is regular no appreciated murmur. 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 Course - Vital Signs Last Recorded V/S: Last Vital Signs Temp 35.8 C L 12/07/19 20:42 Pulse 73 12/07/19 20:42 Resp 18 12/07/19 20:42 BP 187/79 H 12/07/19 20:42 Pulse Ox 97 12/07/19 20:42 - Orders/Labs/Meds Meds: Medications Discontinued Medications Generic Name Dose Route Start Last Admin Trade Name Mari PRN Reason Stop Dose Admin Ketorolac Tromethamine 60 mg 12/07/19 21:02 Toradol IM 12/07/19 21:03 ONETIME ONE Ondansetron HCl 4 mg 12/07/19 21:02 Zofran Odt PO 12/07/19 21:03 ONETIME ONE Departure - Departure Time of Disposition: 21:12 Disposition: Home, Self-Care 01 Condition: Good Clinical Impression: Tension headache, chronic, Paraspinal muscle spasm, Nausea - Discharge Information *PRESCRIPTION DRUG MONITORING PROGRAM REVIEWED*: Not Applicable *COPY OF PRESCRIPTION DRUG MONITORING REPORT IN PATIENT AMIRA: Not Applicable Referrals: Donna Jansen PA-C [Primary Care Provider] - Forms: ED Department Discharge Additional Instructions: Home now and rest. Continue your medications as directed. Contact your massage clinic and explained that you need massage due to medical necessity. Apply heat, avoid getting chilled, avoid extraneous positioning, specifically with how you sleep with pillow. Application of warmth, along with your medications you've been prescribed, and the benefit of getting a massage is this is deemed medically necessitated as you have seemingly gone downhill in your improvement status since pandemic restrictions were applied. Follow-up as needed. Sepsis Event Note - Evaluation Sepsis Screening Result: No Definite Risk - Focused Exam Vital Signs: Vital Signs Temp Pulse Resp BP Pulse Ox 12/07/19 20:42 35.8 C L 73 18 187/79 H 97 Date Exam was Performed: 12/07/19 Time Exam was Performed: 21:03 - Problem List & Annotations (1) Tension headache, chronic Status: Acute Priority: Medium Qualifiers: Intractability: intractable Qualified Code(s): G44.221 - Chronic tension- type headache, intractable (2) Paraspinal muscle spasm SNOMED Code(s): 85436222 Code(s): M62.830 - MUSCLE SPASM OF BACK Status: Chronic Priority: Medium (3) Nausea SNOMED Code(s): 807526490 Code(s): R11.0 - NAUSEA Status: Chronic Priority: Medium - Problem List Review Problem List Initiated/Reviewed/Updated: Yes - Assessment/Plan Plan: Home now and rest. Continue your medications as directed. Contact your massage clinic and explained that you need massage due to medical necessity. Apply heat, avoid getting chilled, avoid extraneous positioning, specifically with how you sleep with pillow. Application of warmth, along with your medications you've been prescribed, and the benefit of getting a massage is this is deemed medically necessitated as you have seemingly gone downhill in your improvement status since pandemic restrictions were applied. Follow-up as needed.
[2019-12-07] MEDS: Ketorolac 60 MG/2 ML SDV IM ONE (21:08)
[2019-12-07] MEDS: Ondansetron 4 MG Tab.DIS PO ONE (21:11)
[2019-12-07] MEDS: Ketorolac 60 MG/2 ML SDV ONE (21:11)
[2019-12-07] MEDS: Ondansetron 4 MG Tab.DIS ONE (21:11)
== END 2019-12-07 21:25 | disposition home or self-care (01) ==
LOC: KA.ED 20:40
DX: G44.229 Chronic tension-type headache, not intractable (principal); M62.838 Other muscle spasm; R11.0 Nausea; K21.9 Gastro-esophageal reflux disease without esophagitis; E03.9 Hypothyroidism, unspecified; F41.9 Anxiety disorder, unspecified; F32.9 Major depressive disorder, single episode, unspecified; Z88.5 Allergy status to narcotic agent; Z88.0 Allergy status to penicillin; Z88.1 Allergy status to other antibiotic agents; Z91.018 Allergy to other foods; Z79.899 Other long term (current) drug therapy; Z79.84 Long term (current) use of oral hypoglycemic drugs
CPT/HCPCS: 96372; 99283; 99284; A9270-GY; J1885

== ENCOUNTER 2020-09-24 17:48 | Observation (INO) | payer MEDICARE, OTHER ==
[2020-09-24] MEDS ORDERED: Ketorolac 30 MG/ML SDV IVPUSH ONE ×2 (17:58→20:33)
[2020-09-24] MEDS ORDERED: Sodium Chloride 0.9% 10 ML Syringe FLUSH PRN ×2 (17:58→19:14)
--- NOTE | 2020-09-24 18:04 | EDM.PDOC ---
ED HPI GENERAL MEDICAL PROBLEM - General Chief Complaint: Chest Pain Stated Complaint: LEFT CHEST PAIN/HEADACHE/BLURRED VISION Time Seen by Provider: 09/24/20 17:59 Source of Information: Reports: Patient, Family History Limitations: Reports: No Limitations - History of Present Illness INITIAL COMMENTS - FREE TEXT/NARRATIVE: 70 YO WF PRESENTS TO ER WITH EPISODE OF LEFT SIDED CHEST PAIN WHICH BEGAN TODAY AT 4PM. PT REPORTS EARLIER IN THE DAY SHE HAD A HEADACHE WITH BLURRED VISION WHICH RESOLVED AFTER A NAP. PT REPORTS SOON AFTER WAKING UP FROM HER NAP SHE DEVELOPED LEFT SIDED CHEST PRESSURE WITH INTERMITTENT STABBING PAINS. PT REPORTS LEFT ARM PAIN, NAUSEA WITHOUT VOMITING, MILD SHORTNESS OF BREATH. PT DENIES DIAPHORESIS, NO FEVER/CHILLS, NO RECENT ILLNESSES. PT REPORTS HISTORY OF MIGRAINE HEADACHES WHICH SHE TAKE VERAPAMIL DAILY. PT DENIES ANY KNOWN COVID EXPOSURES. PT DENIES ANY FOCAL NEUROLOGICAL DEFICITS. Onset: Today Onset Time: 16:00 Location: Reports: Head, Chest Quality: Reports: Ache Severity: Moderate Improves with: Reports: None Worsens with: Reports: None Associated Symptoms: Reports: Chest Pain, Headaches, Nausea/Vomiting, Shortness of Breath. 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 Left Chest Pain Score (Numeric/FACES): 10 Headache Pain Score (Numeric/FACES): 9 - Related Data Allergies Allergy/AdvReac Type Severity Reaction Status Date / Time bacitracin [From Cortisporin] Allergy Cannot Verified 09/24/20 18:45 Remember cortisone [Cortisone] Allergy Headache Verified 09/24/20 18:45 hydrocodone Allergy Itching Verified 09/24/20 18:45 hydrocortisone Allergy Cannot Verified 09/24/20 18:45 [From Cortisporin] Remember neomycin [From Cortisporin] Allergy Cannot Verified 09/24/20 18:45 Remember Penicillins Allergy Rash, hives Verified 09/24/20 18:45 pneumococcal vaccine Allergy Cannot Verified 09/24/20 18:45 [From Prevnar 13 (PF)] Remember polymyxin B Allergy Cannot Verified 09/24/20 18:45 [From Cortisporin] Remember wheat Allergy Headache Verified 09/24/20 18:45 environmental allergens Allergy positive Uncoded 09/24/20 18:45 allergy testing to this FOOD ALLERGIES Allergy Headache Uncoded 09/24/20 18:45 Home Meds: Home Meds Escitalopram [Lexapro] 20 mg PO DAILY 12/21/13 [History] Topiramate 150 mg PO BEDTIME 12/21/13 [History] tiZANidine [Zanaflex] 4 mg PO DAILY PRN 12/21/13 [History] valACYclovir HCl [Valtrex] 500 mg PO ASDIRECTED PRN 12/21/13 [History] Levothyroxine [Synthroid] 88 mcg PO ACBREAKFAST 12/22/16 [History] Hydrocortisone Acetate [Anusol-Hc] 1 supp RC Q4H PRN 06/02/18 [History] Hydrocortisone [Proctosol-HC] 1 applic TOP QID PRN 06/02/18 [History] Fexofenadine/Pseudoephedrine [Krupa-D 12 Hour] 1 each PO DAILY PRN 12/24/18 [History] Fluticasone Propionate [Flonase Allergy Relief] 9.9 ml NS BID PRN 12/24/18 [History] Gabapentin [Neurontin] 600 mg PO ASDIRECTED PRN 12/24/18 [History] Calcium Carbonate/Vitamin D3 [Calcium 500 + Vit D 400] 1 tab PO DAILY 12/08/19 [History] Cholecalciferol (Vitamin D3) [Vitamin D3] 2,000 unit PO DAILY 12/08/19 [History] Diclofenac Sodium 2 g TOP QID 12/08/19 [History] Fish Oil/[place]armen-3 Fatty Acids [Fish Oil 1,000 MG] 1 units PO DAILY 12/08/19 [History] LORazepam [Lorazepam] 0.5 mg PO BEDTIME 12/08/19 [History] Multivitamin 1 each PO DAILY 12/08/19 [History] Promethazine [Phenergan] 25 mg PO Q8H PRN 12/08/19 [History] RABEprazole Sodium [Aciphex] 20 mg PO DAILY 12/08/19 [History] SUMAtriptan Succ/Naproxen Sod [Treximet 85-500 mg Tablet] 1 tab PO ASDIRECTED PRN 12/08/19 [History] Docusate Sodium [Colace] 100 mg PO BID 09/24/20 [History] Verapamil HCl [Verapamil ER Pm] 300 mg PO DAILY 09/24/20 [History] Past Medical History HEENT History: Reports: Impaired Vision Cardiovascular History: Reports: Angina Respiratory History: Reports: Bronchitis, Recurrent Gastrointestinal History: Reports: Chronic Constipation, GERD, Hemorrhoids, Hiatal Hernia, Other (See Below) Other Gastrointestinal History: Frank's esophagus Genitourinary History: Reports: UTI, Recurrent 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 History: Reports: Polycystic Ovaries, Musculoskeletal History: Reports: Fracture Neurological History: Reports: Migraines Psychiatric History: Reports: Anxiety, Depression Endocrine/Metabolic History: Reports: Hypothyroidism Hematologic History: Reports: None Oncologic (Cancer) History: Reports: None - Infectious Disease History Infectious Disease History: Reports: None - Past Surgical History Head Surgeries/Procedures: Reports: None Female Surgical History: Reports: Breast Reduction, Hysterectomy, Salpingo- Oophorectomy Neurological Surgical History: Reports: Lumbar Spine Social & Family History - Family History Family Medical History: No Pertinent Family History - Caffeine Use Caffeine Use: Reports: Coffee, Tea Caffeine Use Comment: mostly decaffenated coffee ED ROS GENERAL - Review of Systems Review Of Systems: See Below Constitutional: Reports: No Symptoms HEENT: Reports: No Symptoms Respiratory: Reports: Shortness of Breath Cardiovascular: Reports: Chest Pain Endocrine: Reports: No Symptoms GI/Abdominal: Reports: Nausea : Reports: No Symptoms Musculoskeletal: Reports: Arm Pain Skin: Reports: No Symptoms Neurological: Reports: Headache. Denies: Trouble Speaking, Difficulty Walking, Change in Speech, Gait Disturbance Psychiatric: Reports: No Symptoms Hematologic/Lymphatic: Reports: No Symptoms Immunologic: Reports: No Symptoms ED EXAM, GENERAL - Physical Exam Exam: See Below Exam Limited By: No Limitations General Appearance: Alert, WD/WN, No Apparent Distress Eye Exam: Bilateral Eye: EOMI, PERRL Head: Atraumatic, Normocephalic Neck: Normal Inspection, Supple, Non-Tender, Full Range of Motion Respiratory/Chest: No Respiratory Distress, Lungs Clear, Normal Breath Sounds, No Accessory Muscle Use, Chest Non-Tender Cardiovascular: Normal Peripheral Pulses, Regular Rate, Rhythm, No Edema, No Gallop, No JVD, No Murmur, No Rub GI/Abdominal: Normal Bowel Sounds, Soft, Non-Tender, No Organomegaly, No Distention, No Abnormal Bruit, No Mass Back Exam: Normal Inspection, Full Range of Motion, NT Extremities: Normal Inspection, Normal Range of Motion, Non-Tender, Normal Capillary Refill, No Pedal Edema Neurological: Alert, Oriented, CN II-XII Intact, Normal Cognition, Normal Gait, Normal Reflexes, No Motor/Sensory Deficits Psychiatric: Normal Affect, Normal Mood Skin Exam: Warm, Dry, Intact, Normal Color, No Rash Lymphatic: No Adenopathy #1 Interpretation EKG Date: 09/24/20 Time: 17:54 Rhythm: NSR Rate (Beats/Min): 77 [place]: Normal P-Wave: Present QRS: Normal ST-T: Normal QT: Normal Comparison: No Change Course - Vital Signs Last Recorded V/S: Last Vital Signs Temp 97.4 F 09/24/20 17:59 Pulse 77 09/24/20 19:16 Resp 16 09/24/20 19:16 BP 166/82 H 09/24/20 19:16 Pulse Ox 97 09/24/20 19:16 - Orders/Labs/Meds Orders: Active Orders 24 hr Category Date Time Status Patient Status Manage Transfer [TRANSFER] Routine ADT 09/24/20 19:11 Active Patient Status [ADT] Routine ADT 09/24/20 19:14 Active Cardiac Monitoring [RC] CONTINUOUS Care 09/24/20 19:15 Active EKG Documentation Completion [RC] ASDIRECTED Care 09/24/20 17:59 Active Oxygen Therapy [RC] PRN Care 09/24/20 19:14 Active Peripheral IV Care [RC] . DIRECTED Care 09/24/20 17:58 Active Up ad Dee [RC] ASDIRECTED Care 09/24/20 19:14 Active VTE/DVT Education [RC] PER UNIT ROUTINE Care 09/24/20 19:14 Active Vital Signs [RC] Q4H Care 09/24/20 19:14 Active Heart Healthy Diet [DIET] Diet 09/24/20 Dinner Active BASIC METABOLIC PANEL,BMP [CHEM] AM Lab 09/25/20 05:11 Ordered CBC WITH AUTO DIFF [HEME] AM Lab 09/25/20 05:11 Ordered TROPONIN I [CHEM] AM Lab 09/25/20 05:11 Ordered TROPONIN I [CHEM] Routine Lab 09/25/20 00:00 Ordered Aspirin [Ecotrin] Med 09/25/20 09:00 Active 325 mg PO DAILY Morphine Med 09/24/20 19:14 Active 2 mg IVPUSH Q2H PRN Nitroglycerin [Nitro-Bid 2%] Med 09/24/20 23:30 Active 1 gm TOP Q6H Ondansetron [Zofran] Med 09/24/20 19:14 Active 4 mg IV Q4H PRN Sodium Chloride 0.9% [Normal Saline] 1,000 ml Med 09/24/20 18:41 Active IV .BOLUS Sodium Chloride 0.9% [Saline Flush] Med 09/24/20 17:58 Active 10 ml FLUSH Q8HR PRN Sodium Chloride 0.9% [Saline Flush] Med 09/24/20 19:14 Active 10 ml FLUSH Q8HR PRN Peripheral IV Insertion Adult [OM.PC] Routine Oth 09/24/20 17:58 Ordered Saline Lock Insert [OM.PC] Routine Oth 09/24/20 19:14 Ordered Resuscitation Status Routine Resus Stat 09/24/20 19:14 Ordered EKG 12 Lead [EK] Stat Ther 09/24/20 17:59 Ordered Medication Orders Aspirin (Ecotrin) 325 mg PO DAILY SHIKHA Sodium Chloride (Normal Saline) 1,000 mls @ 999 mls/hr IV .BOLUS ONE Stop: 09/24/20 19:41 Last Admin: 09/24/20 18:33 Dose: 999 mls/hr Documented by: KEARA Morphine Sulfate (Morphine) 2 mg IVPUSH Q2H PRN PRN Reason: Pain (severe 7-10) Nitroglycerin (Nitro-Bid 2%) 1 gm TOP Q6H SHIKHA Ondansetron HCl (Zofran) 4 mg IV Q4H PRN PRN Reason: Nausea/Vomiting Sodium Chloride (Saline Flush) 10 ml FLUSH Q8HR PRN PRN Reason: keep vein open Sodium Chloride (Saline Flush) 10 ml FLUSH Q8HR PRN PRN Reason: keep vein open Labs: Laboratory Tests 09/24/20 09/24/20 09/24/20 Range/Units 18:02 18:02 18:02 WBC 10.45 H (5.00-10.00) 10^3/uL RBC 3.88 (3.80-5.50) 10^6/uL Hgb 12.5 (12.0-16.0) g/dL Hct 36.9 L (37.0-47.0) % MCV 95.1 H (82.0-92.0) fL MCH 32.2 H (27.0-31.0) pg MCHC 33.9 (32.0-36.0) g/dL RDW 12.0 (11.5-14.5) % Plt Count 284 (150-400) 10^3/uL MPV 9.3 (7.4-10.4) fL Immature Gran % (Auto) 0.4 (0.0-5.0) % Neut % (Auto) 73.6 H (50.0-70.0) % Lymph % (Auto) 16.6 L (20.0-40.0) % [place] % (Auto) 7.8 (2.0-8.0) % Eos % (Auto) 1.0 (1.0-3.0) % Baso % (Auto) 0.6 (0.0-1.0) % Neut # (Auto) 7.70 H (2.50-7.00) 10^3/uL Lymph # (Auto) 1.73 (1.00-4.00) 10^3/uL [place] # (Auto) 0.82 H (0.10-0.80) 10^3/uL Eos # (Auto) 0.10 (0.10-0.30) 10^3/uL Baso # (Auto) 0.06 (0.00-0.10) 10^3/uL Immature Gran # (Auto) 0.04 (0.00-0.50) 10^3/uL PT 9.9 (9.2-11.2) SEC INR 1.0 (0.9-1.1) APTT 25.9 (22.8-31.4) SEC D-Dimer, Quantitative < 100 (<400) ng/mL Sodium 133 L (136-145) mmol/L Potassium 4.0 (3.5-5.1) mmol/L Chloride 98 (98-107) mmol/L Carbon Dioxide 27.1 (21.0-32.0) mmol/L Anion Gap 11.9 (5-15) mmol/L BUN 20 H (7-18) mg/dL Creatinine 0.77 (0.51-1.17) mg/dL Est Cr Clr Drug Dosing 49.53 mL/min Estimated GFR (MDRD) > 60 mL/min Glucose 118 (70-140) mg/dL Calcium 9.3 (8.7-10.3) mg/dL Magnesium (1.8-2.4) mg/dL Total Bilirubin 0.3 (0.2-1.0) mg/dL AST 12 L (15-37) U/L ALT 23 (14-63) U/L Alkaline Phosphatase 77 (46-116) U/L Creatine Kinase 86 (26-276) U/L CK-MB (CK-2) 1.33 (0.00-3.60) ng/mL Troponin I < 0.017 (0.000-0.056) ng/mL Total Protein 6.5 (6.4-8.2) g/dL Albumin 3.74 (3.40-5.00) g/dL 09/24/20 Range/Units 18:02 WBC (5.00-10.00) 10^3/uL RBC (3.80-5.50) 10^6/uL Hgb (12.0-16.0) g/dL Hct (37.0-47.0) % MCV (82.0-92.0) fL MCH (27.0-31.0) pg MCHC (32.0-36.0) g/dL RDW (11.5-14.5) % Plt Count (150-400) 10^3/uL MPV (7.4-10.4) fL Immature Gran % (Auto) (0.0-5.0) % Neut % (Auto) (50.0-70.0) % Lymph % (Auto) (20.0-40.0) % [place] % (Auto) (2.0-8.0) % Eos % (Auto) (1.0-3.0) % Baso % (Auto) (0.0-1.0) % Neut # (Auto) (2.50-7.00) 10^3/uL Lymph # (Auto) (1.00-4.00) 10^3/uL [place] # (Auto) (0.10-0.80) 10^3/uL Eos # (Auto) (0.10-0.30) 10^3/uL Baso # (Auto) (0.00-0.10) 10^3/uL Immature Gran # (Auto) (0.00-0.50) 10^3/uL PT (9.2-11.2) SEC INR (0.9-1.1) APTT (22.8-31.4) SEC D-Dimer, Quantitative (<400) ng/mL Sodium (136-145) mmol/L Potassium (3.5-5.1) mmol/L Chloride (98-107) mmol/L Carbon Dioxide (21.0-32.0) mmol/L Anion Gap (5-15) mmol/L BUN (7-18) mg/dL Creatinine (0.51-1.17) mg/dL Est Cr Clr Drug Dosing mL/min Estimated GFR (MDRD) mL/min Glucose (70-140) mg/dL Calcium (8.7-10.3) mg/dL Magnesium 2.3 (1.8-2.4) mg/dL Total Bilirubin (0.2-1.0) mg/dL AST (15-37) U/L ALT (14-63) U/L Alkaline Phosphatase (46-116) U/L Creatine Kinase (26-276) U/L CK-MB (CK-2) (0.00-3.60) ng/mL Troponin I (0.000-0.056) ng/mL Total Protein (6.4-8.2) g/dL Albumin (3.40-5.00) g/dL Meds: Medications Generic Name Dose Route Start Last Admin Trade Name Freq PRN Reason Stop Dose Admin Aspirin 325 mg 09/25/20 09:00 Ecotrin PO DAILY [facility] Sodium Chloride 1,000 mls @ 999 mls/hr 09/24/20 18:41 09/24/20 18:33 Normal Saline IV 09/24/20 19:41 999 mls/hr .BOLUS ONE Administration Morphine Sulfate 2 mg 09/24/20 19:14 Morphine IVPUSH Q2H PRN Pain (severe 7-10) Nitroglycerin 1 gm 09/24/20 23:30 Nitro-Bid 2% TOP Q6H [facility] Ondansetron HCl 4 mg 09/24/20 19:14 Zofran IV Q4H PRN Nausea/Vomiting Sodium Chloride 10 ml 09/24/20 17:58 Saline Flush FLUSH Q8HR PRN keep vein open Sodium Chloride 10 ml 09/24/20 19:14 Saline Flush FLUSH Q8HR PRN keep vein open Discontinued Medications Generic Name Dose Route Start Last Admin Trade Name Freq PRN Reason Stop Dose Admin Ketorolac Tromethamine 30 mg 09/24/20 17:58 09/24/20 18:33 Toradol IVPUSH 09/24/20 17:59 30 mg ONETIME ONE Administration Nitroglycerin 1 gm 09/24/20 18:56 09/24/20 19:00 Nitro-Bid 2% TOP 09/24/20 18:57 1 gm ONETIME ONE Administration Nitroglycerin Confirm 09/24/20 18:59 09/24/20 19:06 Nitro-Bid 2% Administered 09/24/20 19:00 Not Given Dose 1 gm .ROUTE .STK-MED ONE Ondansetron HCl 4 mg 09/24/20 18:49 09/24/20 18:53 Zofran IVPUSH 09/24/20 18:50 4 mg ONETIME ONE Administration - Radiology Interpretation Free Text/Narrative:: CT HEAD-NAD CXR-NAD Departure - Departure Time of Disposition: 19:09 Disposition: Refer to Observation Clinical Impression: Hyponatremia Chest pain Qualifiers: Chest pain type: unspecified Qualified Code(s): R07.9 - Chest pain, unspecified Hypertension Qualifiers: Hypertension type: unspecified Qualified Code(s): I10 - Essential (primary) hypertension Referrals: Savannah Noguera MD [Primary Care Provider] - Forms: ED Department Discharge Sepsis Event Note (ED) - Focused Exam Vital Signs: Vital Signs Temp Pulse Resp BP Pulse Ox 09/24/20 19:16 77 16 166/82 H 97 09/24/20 19:05 69 16 179/89 H 95 09/24/20 18:45 70 16 170/87 H 96 09/24/20 18:30 63 16 162/91 H 96 09/24/20 17:59 97.4 F 77 18 164/90 H 100 - My Orders Last 24 Hours: My Active Orders 09/24/20 17:58 Peripheral IV Care [RC] . DIRECTED Sodium Chloride 0.9% [Saline Flush] 10 ml FLUSH Q8HR PRN Peripheral IV Insertion Adult [OM.PC] Routine 09/24/20 17:59 EKG Documentation Completion [RC] ASDIRECTED EKG 12 Lead [EK] Stat 09/24/20 Dinner Heart Healthy Diet [DIET] 09/24/20 18:41 Sodium Chloride 0.9% [Normal Saline] 1,000 ml IV .BOLUS 09/24/20 19:11 Patient Status Manage Transfer [TRANSFER] Routine 09/24/20 19:14 Patient Status [ADT] Routine Oxygen Therapy [RC] PRN Up ad Dee [RC] ASDIRECTED VTE/DVT Education [RC] PER UNIT ROUTINE Vital Signs [RC] Q4H Morphine 2 mg IVPUSH Q2H PRN Ondansetron [Zofran] 4 mg IV Q4H PRN Sodium Chloride 0.9% [Saline Flush] 10 ml FLUSH Q8HR PRN Saline Lock Insert [OM.PC] Routine Resuscitation Status Routine 09/24/20 19:15 Cardiac Monitoring [RC] CONTINUOUS 09/24/20 23:30 Nitroglycerin [Nitro-Bid 2%] 1 gm TOP Q6H 09/25/20 00:00 TROPONIN I [CHEM] Routine 09/25/20 05:11 BASIC METABOLIC PANEL,BMP [CHEM] AM CBC WITH AUTO DIFF [HEME] AM TROPONIN I [CHEM] AM 09/25/20 09:00 Aspirin [Ecotrin] 325 mg PO DAILY - Assessment/Plan Admission H&P: Please use this note as an admission H&P Last 24 Hours: My Active Orders 09/24/20 17:58 Peripheral IV Care [RC] . DIRECTED Sodium Chloride 0.9% [Saline Flush] 10 ml FLUSH Q8HR PRN Peripheral IV Insertion Adult [OM.PC] Routine 09/24/20 17:59 EKG Documentation Completion [RC] ASDIRECTED EKG 12 Lead [EK] Stat 09/24/20 Dinner Heart Healthy Diet [DIET] 09/24/20 18:41 Sodium Chloride 0.9% [Normal Saline] 1,000 ml IV .BOLUS 09/24/20 19:11 Patient Status Manage Transfer [TRANSFER] Routine 09/24/20 19:14 Patient Status [ADT] Routine Oxygen Therapy [RC] PRN Up ad Dee [RC] ASDIRECTED VTE/DVT Education [RC] PER UNIT ROUTINE Vital Signs [RC] Q4H Morphine 2 mg IVPUSH Q2H PRN Ondansetron [Zofran] 4 mg IV Q4H PRN Sodium Chloride 0.9% [Saline Flush] 10 ml FLUSH Q8HR PRN Saline Lock Insert [OM.PC] Routine Resuscitation Status Routine 09/24/20 19:15 Cardiac Monitoring [RC] CONTINUOUS 09/24/20 23:30 Nitroglycerin [Nitro-Bid 2%] 1 gm TOP Q6H 09/25/20 00:00 TROPONIN I [CHEM] Routine 09/25/20 05:11 BASIC METABOLIC PANEL,BMP [CHEM] AM CBC WITH AUTO DIFF [HEME] AM TROPONIN I [CHEM] AM 09/25/20 09:00 Aspirin [Ecotrin] 325 mg PO DAILY Assessment:: 1. CHEST PAIN 2. HEADACHE 3. HYPERTENSION 4. HYPONATREMIA Plan: 1. ADMIT TO MEDICINE- DR ALONZO 2. ASA/NITRO 3. TROP I Q6 X 3 4. SUPPORTIVE CARE
[2020-09-24] MEDS ORDERED: Sodium Chloride 0.9% 1,000 ML IV ONE (18:41)
[2020-09-24 18:42] LABS: PTT,PARTIAL THROMBOPLSTIN TIME 25.9 SEC (22.8-31.4)
[2020-09-24 18:45] LABS: ANION GAP 11.9 mmol/L (5-15); CHLORIDE,CL 98 mmol/L (98-107); SODIUM,NA 133 mmol/L (136-145)
[2020-09-24] MEDS ORDERED: Ondansetron 4 MG/2 ML SDV IVPUSH ONE (18:49)
[2020-09-24] MEDS ORDERED: Nitroglycerin 2% Oint 1 GM UD Packet TOP ONE (18:56)
[2020-09-24] MEDS ORDERED: Nitroglycerin 2% Oint 1 GM UD Packet ONE (18:59)
--- NOTE | 2020-09-24 18:59 | CR ---
[id number] RAD/RAD Chest PA And Lateral EXAM: RAD Chest PA And Lateral CLINICAL DATA: BLURRED VISION COMPARISON: CORRELATION IS MADE WITH DECEMBER 22, 2018 FINDINGS: The lungs are clear. The cardiomediastinal contour is prominent but stable. The regional bones and soft tissues are unremarkable. IMPRESSION: NO ACUTE PROCESS. Sree Lewis MD 09/24/20 [id number] Thank you for allowing us to participate in the care of your patient.
--- NOTE | 2020-09-24 19:01 | CT ---
[id number] CT/CT Head WO IV EXAM: CT Head WO IV CLINICAL DATA: BLURRED VISION COMPARISON: CORRELATION IS MADE WITH AUGUST 21, 2019 FINDINGS: There is no mass or mass effect. There is no hemorrhage or hydrocephalus. There are no extra-axial fluid collections. There are no sites of abnormal attenuation. IMPRESSION: NO PLAIN CT EVIDENCE OF ACUTE INTRACRANIAL PROCESS. Sree Lewis MD 09/24/20 [id number] Thank you for allowing us to participate in the care of your patient.
[2020-09-24] MEDS ORDERED: Ondansetron 4 MG/2 ML SDV IV PRN (19:14)
[2020-09-24] MEDS ORDERED: Morphine 2 MG/ML SYRINGE IVPUSH PRN (19:14)
[2020-09-24] MEDS ORDERED: Alum Hydrox/Mag Hydrox/Simeth 30 ML, Lidocaine 2% 15 ML PO ONE ×2 (20:32)
[2020-09-24] MEDS ORDERED: Hydrocortisone 2.5% Crm 30 GM Tube TOP PRN (20:33)
[2020-09-24] MEDS ORDERED: SUMATRIPTAN SUCC PO PRN (20:33)
[2020-09-24] MEDS ORDERED: PSEUDOEPHEDRINE PO PRN (20:33)
[2020-09-24] MEDS ORDERED: FEXOFENADINE PO PRN (20:33)
[2020-09-24] MEDS ORDERED: Gabapentin 300 MG Cap PO PRN (20:33)
[2020-09-24] MEDS ORDERED: valACYclovir 500 MG Tab PO PRN (20:33)
[2020-09-24] MEDS ORDERED: Fluticasone Propionate Nasal Spray 16 GM Bottle NAS PRN (20:33)
[2020-09-24] MEDS ORDERED: NAPROXEN SOD PO PRN (20:33)
[2020-09-24] MEDS ORDERED: tiZANidine 4 MG Tab PO PRN (20:33)
[2020-09-24] MEDS ORDERED: Hydrocortisone Acetate 25 MG Supp RECTAL PRN (20:33)
[2020-09-24] MEDS ORDERED: Promethazine 6.25 MG/5 ML Liquid 10 ML UD Cup PO PRN (20:33)
[2020-09-24] MEDS ORDERED: methylPREDNISolone Sodium Succinate 125 MG/2 ML SDV IVPUSH ONE (20:34)
[2020-09-24] MEDS ORDERED: diphenhydrAMINE 50 MG/ML SDV IVPUSH ONE (20:35)
[2020-09-24] MEDS ORDERED: TOPIRAMATE 150 MG PO SCH (21:00)
[2020-09-24] MEDS: Topiramate 100 MG Tab PO SCH (22:23)
[2020-09-24] MEDS: LORazepam 0.5 MG Tab PO SCH (22:23)
[2020-09-24] MEDS: Diclofenac Sodium 1% Gel 100 GM Tube TOP SCH (22:24)
[2020-09-24] MEDS: Topiramate 25 MG Tab PO SCH (22:24)
[2020-09-24] MEDS: Docusate Sodium 100 MG Cap PO SCH (22:24)
[2020-09-24] MEDS: Nitroglycerin 2% Oint 1 GM UD Packet TOP SCH (23:28)
[2020-09-25] MEDS: Nitroglycerin 2% Oint 1 GM UD Packet TOP SCH ×2 (06:49→19:10)
[2020-09-25] MEDS: Levothyroxine 88 MCG Tab PO SCH (07:36)
[2020-09-25] MEDS: Omeprazole 20 MG Cap.CR PO SCH (07:36)
[2020-09-25 07:55] LABS: CHLORIDE,CL 102 mmol/L (98-107); SODIUM,NA 137 mmol/L (136-145)
[2020-09-25] MEDS: Fish Oil/Omega-3 Fatty Acids 1 Gm Cap PO SCH (08:15)
[2020-09-25] MEDS: Escitalopram 10 MG Tab PO SCH (08:22)
[2020-09-25] MEDS: Topiramate 25 MG Tab PO SCH ×2 (08:22→20:49)
[2020-09-25] MEDS: Calcium Citrate/Vitamin D3 315 MG-250 Unit Tab PO SCH (08:23)
[2020-09-25] MEDS: Docusate Sodium 100 MG Cap PO SCH ×2 (08:23→20:50)
[2020-09-25] MEDS: Multivitamins with Minerals/Iron/Folic Acid/Lycopene Tab PO SCH (08:23)
[2020-09-25] MEDS: Aspirin 325 MG Tab.EC PO SCH (08:24)
[2020-09-25] MEDS: Topiramate 100 MG Tab PO SCH ×2 (08:24→20:49)
[2020-09-25] MEDS: Cholecalciferol (Vitamin D3) 25 MCG Tab PO SCH (08:26)
[2020-09-25] MEDS: Diclofenac Sodium 1% Gel 100 GM Tube TOP SCH ×4 (08:27→20:52)
[2020-09-25] MEDS ORDERED: VERAPAMIL HCL 300 MG PO SCH (09:00)
[2020-09-25] MEDS: Losartan 25 MG Tab PO SCH (10:16)
[2020-09-25] MEDS ORDERED: Gabapentin 300 MG Cap PO PRN (12:21)
--- NOTE | 2020-09-25 13:48 | PN ---
PATIENT NAME: JOE RICE This is a 70-year-old white female who was admitted to the emergency room yesterday with left-sided chest pain which began at 4 p.m. yesterday afternoon. She reported that earlier in the day she had a headache with blurred vision, which resolved after a nap. Soon after she woke up from her nap, she developed left-sided chest pressure with intermittent stabbing pains. She reports left arm pain, nausea without vomiting, and mild shortness of breath. The patient denied any diaphoresis. No recent fever or chills or illness. She does have a history of migraine headaches and this has been a problem and she was admitted. She does have morphine scheduled for pain, but to her knowledge, she does not recall getting any. She does have a history of migraine headache as previously stated. She is on verapamil as well as topiramate. She has depression with anxiety and takes escitalopram as well as lorazepam. 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 She has hypothyroidism and is taking levothyroxine. She does have a p.r.n. order for Neurontin. She has allergies and takes fexofenadine/pseudoephedrine as needed. She has gastroesophageal reflux disease and is taking AcipHex. She takes docusate sodium for a stool softener/constipation. She takes several dietary supplements including multivitamin, fish oil/omega-3 fatty acids, vitamin D, as well as calcium. When I was visiting with the patient this morning, she said that she did have relief from her headache with some nitroglycerin paste, which also relieved her chest pain. Her serial troponins have been negative. She states that her headache is starting to come back this morning. She did have elevated blood pressure is 168/90 at 8:30 last night and it was 167/83 at 10 o'clock last night. At 4 this morning, it was 124/67, and this morning at 7 a.m., it was 134/67. The patient states she has been checking her blood pressure at home and it has been elevated this past week. She currently does not take anything for her blood pressure. She is on verapamil, but that is actually prescribed to her for migraine prophylaxis. Her sodium was slightly low at 133. BUN was slightly high at 20 with a normal range being 7-18. AST was low, which is not clinically significant. As previously stated, her serial troponins were negative. She did receive Toradol in the emergency room, which must have been the medication that helps her headache. We did discuss discharge, however, I think she should stay one more day to make sure that she is feeling better. PHYSICAL EXAMINATION: VITAL SIGNS: Temperature is 97.4, pulse is 81, respirations 16, blood pressure 134/67, O2 saturation is 97% on room air. SKIN: Warm and dry to touch. CARDIAC: S1, S2 to be normal. Rate and rhythm are regular. No murmur, click, or gallop is auscultated. LUNGS: Clear without rales, wheezes, or rhonchi. ABDOMEN: Soft, nontender. Bowel sounds present in all 4 quadrants. There is no pedal edema. NEUROLOGIC: There are no focal neurologic deficits. IMPRESSION: 1. Chest pain. Myocardia infarction ruled out. 2. Hypertension. I did start her on losartan 12.5 mg daily. We will monitor her closely while she is in the hospital to be sure that this is effective. 3. Migraine headache. She does have p.r.n. morphine for headache. She did feel like her headache was coming back and she was given 2 mg of morphine shortly after I visited with her. She will continue topiramate as well as verapamil. 4. Depression and anxiety, on Lexapro as well as lorazepam. She did become tearful when I was talking to her today. With the pandemic and her with a history of multiple myeloma with recurrence of his disease, she reports having quite a bit of stress and not really having anybody to talk to about it. I did reassure her that she is definitely under a lot of stress and that could be one of the reasons why her blood pressure is elevated and her headaches have become more pronounced. 5. Gastroesophageal reflux disease, this is stable. We will monitor her for one more day. Plan for discharge tomorrow. I have communicated all my findings with Dr. Savannah Lemons who was the admitting physician. /[id number]/MODL
[2020-09-25] MEDS ORDERED: Aluminum Hydroxide/Magnesium Hydroxide/Simethicone Susp 30 ML Cup PO PRN (20:07)
[2020-09-25] MEDS: LORazepam 0.5 MG Tab PO SCH (20:49)
[2020-09-26] MEDS: Omeprazole 20 MG Cap.CR PO SCH ×2 (06:04→06:30)
[2020-09-26] MEDS: Levothyroxine 88 MCG Tab PO SCH ×2 (06:04→06:30)
[2020-09-26 07:58] VITALS: BP 155/87; PULSE 78
[2020-09-26] MEDS: Topiramate 25 MG Tab PO SCH (08:20)
[2020-09-26] MEDS: Topiramate 100 MG Tab PO SCH (08:20)
[2020-09-26] MEDS: Losartan 25 MG Tab PO SCH (08:20)
[2020-09-26] MEDS: Cholecalciferol (Vitamin D3) 25 MCG Tab PO SCH (08:20)
[2020-09-26] MEDS: Multivitamins with Minerals/Iron/Folic Acid/Lycopene Tab PO SCH (08:21)
[2020-09-26] MEDS: Aspirin 325 MG Tab.EC PO SCH (08:21)
[2020-09-26] MEDS: Docusate Sodium 100 MG Cap PO SCH (08:21)
[2020-09-26] MEDS: Escitalopram 10 MG Tab PO SCH (08:21)
[2020-09-26] MEDS: Calcium Citrate/Vitamin D3 315 MG-250 Unit Tab PO SCH (08:21)
[2020-09-26] MEDS: Fish Oil/Omega-3 Fatty Acids 1 Gm Cap PO SCH (08:21)
[2020-09-26] MEDS: Diclofenac Sodium 1% Gel 100 GM Tube TOP SCH (08:22)
[2020-09-26] MEDS ORDERED: Losartan 25 MG Tab PO SCH (09:00)
--- NOTE | 2020-09-26 11:00 | DISCH ---
HISTORY OF PRESENT ILLNESS: This is a 70-year-old female who was admitted through the emergency room on 09/24/2020. She was experiencing left-sided chest pain which began at 4:00 p.m. the day before her admission. She reported that earlier in the day, she had a headache with blurred vision which resolved after a nap. After she woke up from her nap, she developed left-sided chest pressure with intermittent stabbing pains. She reported left arm pain, nausea without vomiting, and mild shortness of breath. Yesterday, she was started on losartan 12.5 mg daily for elevated blood pressure. Her blood pressure was quite elevated and has been running high at home per the patient's report. She also had a headache yesterday, which responded well to morphine. She has a history of migraine headaches and takes verapamil as well as topiramate. Other medical problems include depression, cold sores, hypothyroidism, allergies, gastroesophageal reflux disease, constipation. She had a CT of her head in the emergency room as well as a chest x-ray, both were negative. She ruled out with serial troponins, which were normal. She reports feeling much better today and is ready to be discharged. PHYSICAL EXAMINATION: VITAL SIGNS: Temp is 98, pulse is 78, respirations 20, blood pressure 133/67, O2 saturation is 98% on room air. SKIN: Warm and dry to touch. CARDIAC: Reveals S1, S2 to be normal. Rate and rhythm are regular. No murmur, click, or gallop is auscultated. LUNGS: Clear. ABDOMEN: Soft, nontender. Bowel sounds present in all four quadrants. EXTREMITIES: There is no pedal edema. IMPRESSION: 1. Chest pain. Myocardial infarction ruled out. 2. Hypertension. She is on losartan, which appears to be helping her blood pressure. She will monitor her blood pressure at home as well. 3. Migraine headache. This has improved. 4. Depression and anxiety. She is on Lexapro. She was on clonazepam on admission, however, this was changed to lorazepam in the hospital and it actually works quite a bit better. So, she will discontinue the clonazepam and start lorazepam. 5. Gastroesophageal reflux disease, stable. DISPOSITION: The patient will be discharged to follow up with me on 10/10/2020. /[id number]/MODL
== END 2020-09-26 09:55 | disposition home or self-care (01) ==
LOC: KA.ED 17:48 → KA.MS 19:11 → UNDOADMOB 19:11 → KA.MS 19:14
PROVIDERS: ADMIT Physician Assistant Medical; ATTEND Internal Medicine
DX: R07.9 Chest pain, unspecified (principal); E03.9 Hypothyroidism, unspecified; K21.9 Gastro-esophageal reflux disease without esophagitis; I10 Essential (primary) hypertension; E87.1 Hypo-osmolality and hyponatremia; G43.909 Migraine, unspecified, not intractable, without status migrainosus; Z79.899 Other long term (current) drug therapy; Z88.8 Allergy status to other drugs, medicaments and biological substances; Z88.0 Allergy status to penicillin; Z88.1 Allergy status to other antibiotic agents; Z88.5 Allergy status to narcotic agent; Z91.018 Allergy to other foods; Z79.890 Hormone replacement therapy; Z20.828 Contact with and (suspected) exposure to other viral communicable diseases
CPT/HCPCS: 36415; 70450; 71046; 80048; 80053; 82550; 82553; 83735; 84484; 85025; 85379; 85610; 85730; 93005; 96374; 96375; 96376; 99217; 99220; 99225; 99285-25; A9270-GY; G0378; J1200; J1885; J2270; J2405; J2930; J7030; U0002

== ENCOUNTER 2020-10-20 11:37 | Emergency (ER) | payer MEDICARE, OTHER ==
[2020-10-20] MEDS ORDERED: Sodium Chloride 0.9% 10 ML Syringe FLUSH PRN (12:08)
--- NOTE | 2020-10-20 12:11 | EDM.PDOC ---
ED HPI GENERAL MEDICAL PROBLEM - General Chief Complaint: Cardiovascular Problem Stated Complaint: CHEST PAIN Time Seen by Provider: 10/20/20 12:00 Source of Information: Reports: Patient History Limitations: Reports: No Limitations - History of Present Illness INITIAL COMMENTS - FREE TEXT/NARRATIVE: 70 YO WF PRESENTS TO ER FROM CLINIC WITH COMPLAINTS OF CHEST PAIN AND HEADACHE WHICH BEGAN TODAY. PT REPORTS SHE WOKE THIS AM WITH GENERALIZED HEADACHE AND TOOK HER BP. PT REPORTS BP WAS 160/100 AT WHICH TIME SHE TOOK HER BP MEDICATION, A MIGRAINE MEDICATION AND 1/2 TABLET OF CLONAZEPAM WITH SOME RELIEF. PT WENT TO CLINIC AND STATES SHE DEVELOPED LEFT SIDED CHEST PAIN WITH RADIATION TO BACK AND LEFT ARM WITH ASSOCIATED NAUSEA. PT STATES PAIN IS SHARP IN CHARACTER AND WAXES/ WANES. PT DENIES SHORTNESS OF BREATH, DIZZINESS OR DIAPHORESIS. PT DENIES BLURRED VISION OR FOCAL NEURO DEFICITS. PT HAD SAME SYMPTOMS 1 MONTH AGO AND WAS ADMITTED FOR 23 HOURS FOR CHEST PAIN RULE OUT AND SCHEDULE FOR OUTPATIENT 2D ECHO WHICH IS SCHEDULED FOR 11/02/2020. PT DENIES FEVER/CHILLS, NO VOMITING, AND NO RECENT ILLNESSES. Onset: Today Location: Reports: Head, Chest Quality: Reports: Ache, Sharp Severity: Moderate Improves with: Reports: Medication Worsens with: Reports: None Associated Symptoms: Reports: Chest Pain, Headaches, Nausea/Vomiting. Denies: Diaphoresis, Fever/Chills, Shortness of Breath Chest Pain Score (Numeric/FACES): 10 - Related Data Allergies Allergy/AdvReac Type Severity Reaction Status Date / Time bacitracin [From Cortisporin] Allergy Cannot Verified 09/24/20 20:42 Remember cortisone [Cortisone] Allergy Headache Verified 09/24/20 20:42 hydrocodone Allergy Itching Verified 09/24/20 20:42 hydrocortisone Allergy Cannot Verified 09/24/20 20:42 [From Cortisporin] Remember neomycin [From Cortisporin] Allergy Cannot Verified 09/24/20 20:42 Remember Penicillins Allergy Rash, hives Verified 09/24/20 20:42 pneumococcal vaccine Allergy Cannot Verified 09/24/20 20:42 [From Prevnar 13 (PF)] Remember polymyxin B Allergy Cannot Verified 09/24/20 20:42 [From Cortisporin] Remember wheat Allergy Headache Verified 09/24/20 20:42 environmental allergens Allergy positive Uncoded 09/24/20 20:42 allergy testing to this FOOD ALLERGIES Allergy Headache Uncoded 09/24/20 20:42 Home Meds: Home Meds Escitalopram [Lexapro] 20 mg PO DAILY 12/21/13 [History] Topiramate 150 mg PO BEDTIME 12/21/13 [History] tiZANidine [Zanaflex] 4 mg PO DAILY PRN 12/21/13 [History] valACYclovir HCl [Valtrex] 500 mg PO ASDIRECTED PRN 12/21/13 [History] Levothyroxine [Synthroid] 88 mcg PO ACBREAKFAST 12/22/16 [History] Hydrocortisone Acetate [Anusol-Hc] 1 supp RC Q4H PRN 06/02/18 [History] Hydrocortisone [Proctosol-HC] 1 applic TOP QID PRN 06/02/18 [History] Gabapentin [Neurontin] 600 mg PO ASDIRECTED PRN 12/24/18 [History] Calcium Carbonate/Vitamin D3 [Calcium 500 + Vit D 400] 1 tab PO DAILY 12/08/19 [History] Cholecalciferol (Vitamin D3) [Vitamin D3] 2,000 unit PO DAILY 12/08/19 [History] Diclofenac Sodium 2 g TOP QID 12/08/19 [History] Fish Oil/[place]-3 Fatty Acids [Fish Oil 1,000 MG] 1 units PO DAILY 12/08/19 [History] Multivitamin 1 each PO DAILY 12/08/19 [History] Promethazine [Phenergan] 25 mg PO Q8H PRN 12/08/19 [History] RABEprazole Sodium [Aciphex] 20 mg PO DAILY 12/08/19 [History] SUMAtriptan Succ/Naproxen Sod [Treximet 85-500 mg Tablet] 1 tab PO ASDIRECTED PRN 12/08/19 [History] Verapamil HCl [Verapamil ER Pm] 300 mg PO DAILY 09/24/20 [History] Aspirin [Ecotrin EC] 325 mg PO DAILY tab.ec 09/26/20 [Rx] Losartan [Cozaar] 12.5 mg PO DAILY #30 tablet 09/26/20 [Rx] Cyclobenzaprine [Flexeril] 10 mg PO BEDTIME 10/20/20 [History] Eletriptan [Relpax] 40 mg PO ASDIRECTED PRN 10/20/20 [History] bisacodyL [Dulcolax] 5 mg PO BID PRN 10/20/20 [History] clonazePAM [Clonazepam] 0.5 mg PO BEDTIME 10/20/20 [History] Past Medical History HEENT History: Reports: Impaired Vision Cardiovascular History: Reports: Angina, High Cholesterol, Hypertension Respiratory History: Reports: Bronchitis, Recurrent Gastrointestinal History: Reports: Chronic Constipation, GERD, Hemorrhoids, Hiatal Hernia, Other (See Below) Other Gastrointestinal History: Frank's esophagus Genitourinary History: Reports: UTI, Recurrent [employer] History: Reports: Polycystic Ovaries, Musculoskeletal History: Reports: Fracture Neurological History: Reports: Migraines Psychiatric History: Reports: Anxiety, Depression Endocrine/Metabolic History: Reports: Hypothyroidism, Obesity/BMI 30+ Hematologic History: Reports: None Oncologic (Cancer) History: Reports: None - Infectious Disease History Infectious Disease History: Reports: None - Past Surgical History Head Surgeries/Procedures: Reports: None HEENT Surgical History: Reports: Adenoidectomy, Tonsillectomy GI Surgical History: Reports: Appendectomy, Colonoscopy Female Surgical History: Reports: Breast Reduction, Hysterectomy, Salpingo- Oophorectomy Neurological Surgical History: Reports: Lumbar Spine Musculoskeletal Surgical History: Reports: None Social & Family History - Family History Family Medical History: No Pertinent Family History - Caffeine Use Caffeine Use: Reports: Coffee Caffeine Use Comment: mostly decaffenated coffee ED ROS GENERAL - Review of Systems Review Of Systems: See Below Constitutional: Reports: No Symptoms HEENT: Reports: No Symptoms Respiratory: Reports: No Symptoms Cardiovascular: Reports: Chest Pain, Blood Pressure Problem Endocrine: Reports: No Symptoms GI/Abdominal: Reports: Nausea. Denies: Vomiting : Reports: No Symptoms Musculoskeletal: Reports: No Symptoms Skin: Reports: No Symptoms Neurological: Reports: Headache. Denies: Confusion, Dizziness, Numbness, Seizure, Syncope, Trouble Speaking, Difficulty Walking, Weakness, Change in Speech, Gait Disturbance Psychiatric: Reports: No Symptoms Hematologic/Lymphatic: Reports: No Symptoms Immunologic: Reports: No Symptoms ED EXAM, GENERAL - Physical Exam Exam: See Below Exam Limited By: No Limitations General Appearance: Alert, WD/WN, No Apparent Distress Eye Exam: Bilateral Eye: EOMI, PERRL Ear Exam: Bilateral Ear: Auricle Normal, Canal Normal, TM normal Throat/Mouth: Normal Inspection, Normal Lips, Normal Teeth, Normal Gums, Normal Oropharynx, Normal Voice, No Airway Compromise Head: Atraumatic, Normocephalic Neck: Normal Inspection, Supple, Non-Tender, Full Range of Motion Respiratory/Chest: No Respiratory Distress, Lungs Clear, Normal Breath Sounds, No Accessory Muscle Use, Chest Non-Tender Cardiovascular: Normal Peripheral Pulses, Regular Rate, Rhythm, No Edema, No Gallop, No JVD, No Murmur, No Rub GI/Abdominal: Normal Bowel Sounds, Soft, Non-Tender, No Organomegaly, No Distention, No Abnormal Bruit, No Mass Extremities: Normal Inspection, Normal Range of Motion, Non-Tender, Normal Capillary Refill, No Pedal Edema Neurological: Alert, Oriented, CN II-XII Intact, Normal Cognition, Normal Gait, Normal Reflexes, No Motor/Sensory Deficits Psychiatric: Normal Affect, Normal Mood Skin Exam: Warm, Dry, Intact, Normal Color, No Rash Lymphatic: No Adenopathy #1 Interpretation EKG Date: 10/20/20 Time: 11:49 Rhythm: NSR Rate (Beats/Min): 74 [place]: Normal P-Wave: Present QRS: Normal ST-T: Normal QT: Normal Comparison: No Change Course - Vital Signs Last Recorded V/S: Last Vital Signs Temp 97.1 F 10/20/20 12:22 Pulse 81 10/20/20 12:22 Resp 20 10/20/20 12:22 BP 184/95 H 10/20/20 12:22 Pulse Ox 96 10/20/20 12:22 - Orders/Labs/Meds Orders: Active Orders 24 hr Category Date Time Status EKG Documentation Completion [RC] ASDIRECTED Care 10/20/20 11:50 Active Peripheral IV Care [RC] . DIRECTED Care 10/20/20 12:08 Active Sodium Chloride 0.9% [Saline Flush] Med 10/20/20 12:08 Active 10 ml FLUSH Q8HR PRN Peripheral IV Insertion Adult [OM.PC] Routine Oth 10/20/20 12:08 Ordered EKG 12 Lead [EK] Stat Ther 10/20/20 11:50 Ordered Medication Orders Sodium Chloride (Saline Flush) 10 ml FLUSH Q8HR PRN PRN Reason: keep vein open Labs: Laboratory Tests 10/20/20 10/20/20 10/20/20 Range/Units 11:55 11:55 11:55 WBC 6.50 (5.00-10.00) 10^3/uL RBC 4.34 (3.80-5.50) 10^6/uL Hgb 14.0 (12.0-16.0) g/dL Hct 41.6 (37.0-47.0) % MCV 95.9 H (82.0-92.0) fL MCH 32.3 H (27.0-31.0) pg MCHC 33.7 (32.0-36.0) g/dL RDW 12.2 (11.5-14.5) % Plt Count 244 (150-400) 10^3/uL MPV 9.3 (7.4-10.4) fL Immature Gran % (Auto) 0.6 (0.0-5.0) % Neut % (Auto) 60.6 (50.0-70.0) % Lymph % (Auto) 24.6 (20.0-40.0) % [place] % (Auto) 11.4 H (2.0-8.0) % Eos % (Auto) 2.2 (1.0-3.0) % Baso % (Auto) 0.6 (0.0-1.0) % Neut # (Auto) 3.94 (2.50-7.00) 10^3/uL Lymph # (Auto) 1.60 (1.00-4.00) 10^3/uL [place] # (Auto) 0.74 (0.10-0.80) 10^3/uL Eos # (Auto) 0.14 (0.10-0.30) 10^3/uL Baso # (Auto) 0.04 (0.00-0.10) 10^3/uL Immature Gran # (Auto) 0.04 (0.00-0.50) 10^3/uL D-Dimer, Quantitative 124 (<400) ng/mL Sodium 137 (136-145) mmol/L Potassium 3.2 L (3.5-5.1) mmol/L Chloride 100 (98-107) mmol/L Carbon Dioxide 25.4 (21.0-32.0) mmol/L Anion Gap 14.8 (5-15) mmol/L BUN 14 (7-18) mg/dL Creatinine 0.83 (0.51-1.17) mg/dL Est Cr Clr Drug Dosing 45.95 mL/min Estimated GFR (MDRD) > 60 mL/min Glucose 88 (70-140) mg/dL Calcium 10.0 (8.7-10.3) mg/dL Total Bilirubin 0.3 (0.2-1.0) mg/dL AST 17 (15-37) U/L ALT 27 (14-63) U/L Alkaline Phosphatase 81 (46-116) U/L Creatine Kinase 115 (26-276) U/L CK-MB (CK-2) 1.41 (0.00-3.60) ng/mL Troponin I < 0.017 (0.000-0.056) ng/mL Total Protein 7.2 (6.4-8.2) g/dL Albumin 4.38 (3.40-5.00) g/dL Meds: Medications Generic Name Dose Route Start Last Admin Trade Name Freq PRN Reason Stop Dose Admin Sodium Chloride 10 ml 10/20/20 12:08 Saline Flush FLUSH Q8HR PRN keep vein open Discontinued Medications Generic Name Dose Route Start Last Admin Trade Name Freq PRN Reason Stop Dose Admin Lorazepam 1 mg 10/20/20 12:14 10/20/20 12:20 Ativan IVPUSH 10/20/20 12:15 1 mg ONETIME ONE Administration - Radiology Interpretation Free Text/Narrative:: CXR-NAD - Re-Assessments/Exams Free Text/Narrative Re-Assessment/Exam: 10/20/20 13:03 PT REPORTS HEADACHE IMPROVED AND CHEST PAIN HAS RESOLVED AFTER ATIVAN. DISCUSSED CASE WITH MARSHALL POLO PA-C AND SHE WILL FOLLOW UP WITH PATIENT AN OUTPATIENT FOR FURTHER EVALUATION AND TREATMENT. Departure - Departure Time of Disposition: 13:17 Disposition: Home, Self-Care 01 Condition: Good Clinical Impression: Hypertensive heart disease Qualifiers: Heart failure presence: without heart failure Qualified Code(s): I11.9 - Hypertensive heart disease without heart failure Chest pain Qualifiers: Chest pain type: unspecified Qualified Code(s): R07.9 - Chest pain, unspecified Instructions: Nonspecific Chest Pain, Adult, Hypertension, Adult Referrals: Savannah Noguera MD [Primary Care Provider] - Forms: ED Department Discharge Additional Instructions: 1. DISCHARGE HOME- DISCUSSED WITH MARSHALL POLO PA-C AND AGREED WITH DISPOSITION. PT INSTRUCTED TO TAKE HER CLONAZEPAM IF SYMPTOMS RETURN. IF NO IMPROVEMENT, PT INSTRUCTED TO RETURN TO ER FOR FURTHER EVALUATION AND TREATMENT 2. CONTINUE CURRENT BP MEDICATION AND LOG BP EVERY AFTERNOON AND RETURN TO CLINIC AFTER 2D ECHO ON 10/27/2020 FOR RECOMMENDATION ON DOSING OR MEDICATION CHANGE 3. CONTINUE ASPRIN 325MG DAILY 4. RETURN TO ER FOR WORSENING SYMPTOMS Sepsis Event Note (ED) - Focused Exam Vital Signs: Vital Signs Temp Pulse Resp BP Pulse Ox 10/20/20 12:22 97.1 F 81 20 184/95 H 96 - My Orders Last 24 Hours: My Active Orders 10/20/20 11:50 EKG Documentation Completion [RC] ASDIRECTED EKG 12 Lead [EK] Stat 10/20/20 12:08 Peripheral IV Care [RC] . DIRECTED Sodium Chloride 0.9% [Saline Flush] 10 ml FLUSH Q8HR PRN Peripheral IV Insertion Adult [OM.PC] Routine - Assessment/Plan Last 24 Hours: My Active Orders 10/20/20 11:50 EKG Documentation Completion [RC] ASDIRECTED EKG 12 Lead [EK] Stat 10/20/20 12:08 Peripheral IV Care [RC] . DIRECTED Sodium Chloride 0.9% [Saline Flush] 10 ml FLUSH Q8HR PRN Peripheral IV Insertion Adult [OM.PC] Routine Assessment:: 1. HYPERTENSIVE CHEST PAIN- RESOLVED Plan: 1. DISCHARGE HOME- DISCUSSED WITH MARSHALL POLO PA-C AND AGREED WITH DISPOSITION. PT INSTRUCTED TO TAKE HER CLONAZEPAM IF SYMPTOMS RETURN. IF NO IMPROVEMENT, PT INSTRUCTED TO RETURN TO ER FOR FURTHER EVALUATION AND TREATMENT 2. CONTINUE CURRENT BP MEDICATION AND LOG BP EVERY AFTERNOON AND RETURN TO CLINIC AFTER 2D ECHO ON 10/27/2020 FOR RECOMMENDATION ON DOSING OR MEDICATION CHANGE 3. CONTINUE ASPIRIN 325MG DAILY 4. RETURN TO ER FOR WORSENING SYMPTOMS
[2020-10-20] MEDS: LORazepam 2 MG/ML SDV IVPUSH ONE (12:20)
--- NOTE | 2020-10-20 12:33 | CR ---
[id number] RAD/RAD Chest PA And Lateral EXAM: RAD Chest PA And Lateral INDICATION: CHEST PAIN. COMPARISON: September 24, 2020 DISCUSSION: Cardiomediastinal silhouette is normal in size and contour. Lungs are clear. No pleural effusion or pneumothorax. IMPRESSION: No acute findings. Aman Vasques MD 10/20/20 [id number] Thank you for allowing us to participate in the care of your patient.
[2020-10-20 12:43] LABS: ANION GAP 14.8 mmol/L (5-15); CHLORIDE,CL 100 mmol/L (98-107); SODIUM,NA 137 mmol/L (136-145)
[2020-10-20 13:15] VITALS: BP 178/86; PULSE 65
== END 2020-10-20 13:35 | disposition home or self-care (01) ==
LOC: KA.ED 11:37
DX: I11.9 Hypertensive heart disease without heart failure (principal); K21.9 Gastro-esophageal reflux disease without esophagitis; E03.9 Hypothyroidism, unspecified; E66.9 Obesity, unspecified; Z88.1 Allergy status to other antibiotic agents; Z88.5 Allergy status to narcotic agent; Z88.0 Allergy status to penicillin; Z88.7 Allergy status to serum and vaccine; Z91.048 Other nonmedicinal substance allergy status; Z79.82 Long term (current) use of aspirin; Z79.899 Other long term (current) drug therapy
CPT/HCPCS: 71046; 80053; 82550; 82553; 84484; 85025; 85379; 93005; 96374; 99284; 99285-25; J2060

== ENCOUNTER 2021-01-19 16:13 | Emergency (ER) | payer MEDICARE, OTHER ==
[2021-01-19] MEDS ORDERED: cloNIDine 0.1 MG Tab PO ONE (17:28)
--- NOTE | 2021-01-19 18:25 | EDM.PDOC ---
ED HPI GENERAL MEDICAL PROBLEM - General Chief Complaint: General Stated Complaint: ELEVATED BP Time Seen by Provider: 01/19/21 16:57 Source of Information: Reports: Patient History Limitations: Reports: No Limitations - History of Present Illness INITIAL COMMENTS - FREE TEXT/NARRATIVE: Patient presents with elevated blood pressure. She noticed this at home and called her PCP to see if she should take another 1/2 dose of her medication. She was instructed to come to ER for evaluation. She says she has had this a couple times before, most recently in October. She deals with anxiety and thinks it may be related. Over the past two weeks she gets left upper chest pain occasionally, that lasts 2-5 minutes. She had that again today. It typically comes with activity and resolves with rest. 2 or 3 years ago she had cardiac workup including echo and angiogram. Angiogram showed a small plaque in one artery but otherwise clear she says. Headache Pain Score (Numeric/FACES): 9 - Related Data Allergies Allergy/AdvReac Type Severity Reaction Status Date / Time bacitracin [From Cortisporin] Allergy Cannot Verified 01/19/21 16:27 Remember cortisone [Cortisone] Allergy Headache Verified 01/19/21 16:27 hydrocodone Allergy Itching Verified 01/19/21 16:27 hydrocortisone Allergy Cannot Verified 01/19/21 16:27 [From Cortisporin] Remember neomycin [From Cortisporin] Allergy Cannot Verified 01/19/21 16:27 Remember Penicillins Allergy Rash, hives Verified 01/19/21 16:27 pneumococcal vaccine Allergy Cannot Verified 01/19/21 16:27 [From Prevnar 13 (PF)] Remember polymyxin B Allergy Cannot Verified 01/19/21 16:27 [From Cortisporin] Remember wheat Allergy Headache Verified 01/19/21 16:27 environmental allergens Allergy positive Uncoded 01/19/21 16:27 allergy testing to this FOOD ALLERGIES Allergy Headache Uncoded 01/19/21 16:27 Home Meds: Home Meds Topiramate 150 mg PO BEDTIME 12/21/13 [History] tiZANidine [Zanaflex] 4 mg PO DAILY PRN 12/21/13 [History] valACYclovir HCl [Valtrex] 500 mg PO ASDIRECTED PRN 12/21/13 [History] Levothyroxine [Synthroid] 88 mcg PO ACBREAKFAST 12/22/16 [History] Gabapentin [Neurontin] 600 mg PO ASDIRECTED PRN 12/24/18 [History] Calcium Carbonate/Vitamin D3 [Calcium 500 + Vit D 400] 1 tab PO DAILY 12/08/19 [History] Cholecalciferol (Vitamin D3) [Vitamin D3] 2,000 unit PO DAILY 12/08/19 [History] Diclofenac Sodium 2 g TOP QID 12/08/19 [History] Fish Oil/[place]-3 Fatty Acids [Fish Oil 1,000 MG] 1 units PO DAILY 12/08/19 [History] Multivitamin 1 each PO DAILY 12/08/19 [History] Promethazine [Phenergan] 25 mg PO Q8H PRN 12/08/19 [History] RABEprazole Sodium [Aciphex] 20 mg PO DAILY 12/08/19 [History] SUMAtriptan Succ/Naproxen Sod [Treximet 85-500 mg Tablet] 1 tab PO ASDIRECTED PRN 12/08/19 [History] Verapamil HCl [Verapamil ER Pm] 300 mg PO DAILY 09/24/20 [History] Eletriptan [Relpax] 40 mg PO ASDIRECTED PRN 10/20/20 [History] bisacodyL [Dulcolax] 5 mg PO BID PRN 10/20/20 [History] clonazePAM [Clonazepam] 0.5 mg PO BEDTIME 10/20/20 [History] Aspirin [Aspirin EC] 81 mg PO DAILY 01/19/21 [History] Losartan [Cozaar] 50 mg PO DAILY 01/19/21 [History] Past Medical History HEENT History: Reports: Impaired Vision Cardiovascular History: Reports: Angina, High Cholesterol, Hypertension Respiratory History: Reports: Bronchitis, Recurrent Gastrointestinal History: Reports: Chronic Constipation, GERD, Hemorrhoids, Hiatal Hernia, Other (See Below) Other Gastrointestinal History: Frank's esophagus Genitourinary History: Reports: UTI, Recurrent [employer] History: Reports: Polycystic Ovaries, Musculoskeletal History: Reports: Fracture Neurological History: Reports: Migraines Psychiatric History: Reports: Anxiety, Depression Endocrine/Metabolic History: Reports: Hypothyroidism, Obesity/BMI 30+ Hematologic History: Reports: None Oncologic (Cancer) History: Reports: None - Infectious Disease History Infectious Disease History: Reports: None, Chicken Pox, Influenza, Measles - Past Surgical History Head Surgeries/Procedures: Reports: None HEENT Surgical History: Reports: Adenoidectomy, Tonsillectomy GI Surgical History: Reports: Appendectomy, Colonoscopy Female Surgical History: Reports: Breast Reduction, Hysterectomy, Salpingo- Oophorectomy Neurological Surgical History: Reports: Lumbar Spine Musculoskeletal Surgical History: Reports: None Social & Family History - Family History Family Medical History: No Pertinent Family History - Caffeine Use Caffeine Use: Reports: Coffee Caffeine Use Comment: mostly decaffenated coffee ED ROS GENERAL - Review of Systems Review Of Systems: See Below Constitutional: Denies: Fever, Chills, Malaise, Weakness HEENT: Denies: Ear Pain, Throat Pain, Vision Change Respiratory: Denies: Shortness of Breath, Cough Cardiovascular: Reports: Chest Pain. Denies: Lightheadedness, Syncope Endocrine: Denies: Fatigue GI/Abdominal: Reports: Nausea (intermittent). Denies: Abdominal Pain, Vomiting : Denies: Dysuria, Flank Pain Musculoskeletal: Denies: Neck Pain, Shoulder Pain, Arm Pain, Back Pain, Hand Pain Skin: Denies: Cyanosis, Jaundice, Mottled, Pallor, Diaphoresis Neurological: Denies: Confusion, Dizziness, Headache, Seizure, Syncope, Trouble Speaking, Difficulty Walking, Weakness Psychiatric: Reports: Anxiety. Denies: Agitation, Confusion ED EXAM, GENERAL - Physical Exam Exam: See Below Exam Limited By: No Limitations General Appearance: Alert, WD/WN, No Apparent Distress Eye Exam: Bilateral Eye: EOMI, Normal Inspection, PERRL Ears: Normal External Exam, Hearing Grossly Normal Nose: Normal Inspection, No Blood Throat/Mouth: Normal Inspection, Normal Lips, Normal Voice, No Airway Compromise Head: Atraumatic, Normocephalic Neck: Normal Inspection, Full Range of Motion Respiratory/Chest: No Respiratory Distress, Lungs Clear, Normal Breath Sounds, No Accessory Muscle Use Cardiovascular: Normal Peripheral Pulses, Regular Rate, Rhythm, No Edema, No Murmur GI/Abdominal: Normal Bowel Sounds, Soft, Non-Tender, No Organomegaly, No Distention Back Exam: Normal Inspection, Full Range of Motion. No: CVA Tenderness (L), CVA Tenderness (R) Extremities: Normal Inspection, Normal Range of Motion Neurological: Alert, Oriented, Normal Cognition, No Motor/Sensory Deficits Psychiatric: Normal Affect, Normal Mood, Anxious Skin Exam: Warm, Dry, Intact, Normal Color, No Rash Course - Vital Signs Last Recorded V/S: Last Vital Signs Temp 97.3 F 01/19/21 18:20 Pulse 69 01/19/21 18:20 Resp 18 01/19/21 18:20 BP 172/90 H 01/19/21 18:20 Pulse Ox 98 01/19/21 18:20 - Orders/Labs/Meds Orders: Active Orders 24 hr Category Date Time Status EKG Documentation Completion [RC] ASDIRECTED Care 01/19/21 17:26 Active EKG 12 Lead [EK] Stat Ther 01/19/21 17:25 Ordered Labs: Laboratory Tests 01/19/21 01/19/21 Range/Units 17:55 17:55 WBC 6.60 (5.00-10.00) 10^3/uL RBC 4.00 (3.80-5.50) 10^6/uL Hgb 12.7 (12.0-16.0) g/dL Hct 38.4 (37.0-47.0) % MCV 96.0 H (82.0-92.0) fL MCH 31.8 H (27.0-31.0) pg MCHC 33.1 (32.0-36.0) g/dL RDW 12.2 (11.5-14.5) % Plt Count 260 (150-400) 10^3/uL MPV 9.4 (7.4-10.4) fL Immature Gran % (Auto) 0.3 (0.0-5.0) % Neut % (Auto) 56.6 (50.0-70.0) % Lymph % (Auto) 29.5 (20.0-40.0) % [place] % (Auto) 10.8 H (2.0-8.0) % Eos % (Auto) 2.3 (1.0-3.0) % Baso % (Auto) 0.5 (0.0-1.0) % Neut # (Auto) 3.74 (2.50-7.00) 10^3/uL Lymph # (Auto) 1.95 (1.00-4.00) 10^3/uL [place] # (Auto) 0.71 (0.10-0.80) 10^3/uL Eos # (Auto) 0.15 (0.10-0.30) 10^3/uL Baso # (Auto) 0.03 (0.00-0.10) 10^3/uL Immature Gran # (Auto) 0.02 (0.00-0.50) 10^3/uL Sodium 138 (136-145) mmol/L Potassium 3.9 (3.5-5.1) mmol/L Chloride 102 (98-107) mmol/L Carbon Dioxide 26.5 (21.0-32.0) mmol/L Anion Gap 13.4 (5-15) mmol/L BUN 19 H (7-18) mg/dL Creatinine 0.83 (0.51-1.17) mg/dL Est Cr Clr Drug Dosing 45.95 mL/min Estimated GFR (MDRD) > 60 mL/min Glucose 93 (70-140) mg/dL Calcium 9.1 (8.7-10.3) mg/dL Troponin I High Sens 5.700 (0-51.000) pg/mL Meds: Medications Discontinued Medications Generic Name Dose Route Start Last Admin Trade Name Acostaq PRN Reason Stop Dose Admin Clonidine HCl 0.2 mg 01/19/21 17:28 01/19/21 17:39 Clonidine 0.1 Mg Tab PO 01/19/21 17:29 0.2 mg ONETIME ONE Administration Lorazepam 0.5 mg 01/19/21 18:57 01/19/21 19:02 Lorazepam 0.5 Mg Tab PO 01/19/21 18:58 0.5 mg ONETIME ONE Administration Departure - Departure Time of Disposition: 19:17 Disposition: Home, Self-Care 01 Condition: Good Clinical Impression: Anxiety Hypertension Qualifiers: Hypertension type: unspecified Qualified Code(s): I10 - Essential (primary) hypertension - Discharge Information Referrals: Donna Jansen PA-C [Primary Care Provider] - Forms: ED Department Discharge Additional Instructions: Continue your regular medications and drinking 8 cups of water daily. Call your PCP tomorrow about the options of taking an extra 1/2 dose of your blood pressure pill on occasion when needed. Return to ER if needed. Sepsis Event Note (ED) - Evaluation Sepsis Screening Result: No Definite Risk - Focused Exam Vital Signs: Vital Signs Temp Pulse Resp BP BP BP Pulse Ox 01/19/21 18:20 97.3 F 69 18 172/90 H 98 01/19/21 18:15 186/90 H 01/19/21 18:00 169/92 H 01/19/21 17:45 66 20 184/95 H 95 01/19/21 17:39 184/95 H 01/19/21 17:30 190/102 H 01/19/21 17:15 193/103 H 01/19/21 17:00 72 18 184/102 H 98 01/19/21 16:45 191/101 H 01/19/21 16:30 65 18 190/97 H 99 01/19/21 16:15 97.6 F 72 20 197/98 H 98 01/19/21 16:13 97.6 F 72 20 197/98 H 98 - My Orders Last 24 Hours: My Active Orders 01/19/21 17:25 EKG 12 Lead [EK] Stat 01/19/21 17:26 EKG Documentation Completion [RC] ASDIRECTED - Assessment/Plan Last 24 Hours: My Active Orders 01/19/21 17:25 EKG 12 Lead [EK] Stat 01/19/21 17:26 EKG Documentation Completion [RC] ASDIRECTED
[2021-01-19 18:31] LABS: ANION GAP 13.4 mmol/L (5-15); CHLORIDE,CL 102 mmol/L (98-107); SODIUM,NA 138 mmol/L (136-145)
[2021-01-19] MEDS ORDERED: LORazepam 0.5 MG Tab PO ONE (18:57)
[2021-01-19 19:54] VITALS: BP 161/86; PULSE 68
== END 2021-01-19 19:48 | disposition home or self-care (01) ==
LOC: KA.ED 16:13
DX: I10 Essential (primary) hypertension (principal); F41.9 Anxiety disorder, unspecified; K21.9 Gastro-esophageal reflux disease without esophagitis; E03.9 Hypothyroidism, unspecified; E66.9 Obesity, unspecified; Z68.33 Body mass index [BMI] 33.0-33.9, adult; Z88.1 Allergy status to other antibiotic agents; Z88.5 Allergy status to narcotic agent; Z88.0 Allergy status to penicillin; Z88.7 Allergy status to serum and vaccine; Z91.018 Allergy to other foods; Z91.048 Other nonmedicinal substance allergy status; Z79.82 Long term (current) use of aspirin; Z79.899 Other long term (current) drug therapy
CPT/HCPCS: 36415; 80048; 84484; 85025; 93005; 99283; A9270

== ENCOUNTER 2022-01-14 10:51 | Emergency (ER) | payer MEDICARE, OTHER ==
[2022-01-14] MEDS ORDERED: Azithromycin 250 MG Tab PO ONE (11:24)
[2022-01-14 11:54] VITALS: BP 138/80; PULSE 84
== END 2022-01-14 11:40 | disposition home or self-care (01) ==
LOC: KA.ED 10:51
DX: J02.9 Acute pharyngitis, unspecified (principal); E78.00 Pure hypercholesterolemia, unspecified; I10 Essential (primary) hypertension; K21.9 Gastro-esophageal reflux disease without esophagitis; E03.9 Hypothyroidism, unspecified; E66.9 Obesity, unspecified; Z68.33 Body mass index [BMI] 33.0-33.9, adult; Z90.49 Acquired absence of other specified parts of digestive tract; Z90.710 Acquired absence of both cervix and uterus; Z79.899 Other long term (current) drug therapy; Z88.8 Allergy status to other drugs, medicaments and biological substances; Z88.0 Allergy status to penicillin; Z88.7 Allergy status to serum and vaccine; Z91.018 Allergy to other foods; Z91.09 Other allergy status, other than to drugs and biological substances
CPT/HCPCS: 99283; A9270; 99284

== ENCOUNTER 2022-03-12 07:37 | Day surgery (SDC) | payer MEDICARE, OTHER ==
[2022-03-12] MEDS ORDERED: Ondansetron 4 MG/2 ML SDV IV ONE (07:38)
[2022-03-12] MEDS ORDERED: Lactated Ringers 1,000 ML IV SCH (08:00)
[2022-03-12] MEDS ORDERED: Sodium Chloride 0.9% 10 ML Syringe FLUSH PRN (08:00)
[2022-03-12 08:10] VITALS: PULSE 75
[2022-03-12] MEDS ORDERED: Glycopyrrolate 0.2 MG/ML SDV ONE (08:50)
[2022-03-12] MEDS ORDERED: Propofol 200 MG/20 ML SDV ONE (08:50)
[2022-03-12] MEDS ORDERED: Midazolam 1 MG/ML 2 ML SDV ONE (08:50)
[2022-03-12 10:26] VITALS: BP 139/78
== END 2022-03-12 10:35 | disposition home or self-care (01) ==
LOC: KA.SDS 07:37
PROVIDERS: ATTEND Family Medicine
DX: K22.89 Other specified disease of esophagus (principal); I10 Essential (primary) hypertension; F41.9 Anxiety disorder, unspecified; F32.A Depression, unspecified; J30.9 Allergic rhinitis, unspecified; K21.9 Gastro-esophageal reflux disease without esophagitis; J40 Bronchitis, not specified as acute or chronic; G89.29 Other chronic pain; M53.3 Sacrococcygeal disorders, not elsewhere classified; E03.9 Hypothyroidism, unspecified; E78.00 Pure hypercholesterolemia, unspecified; E66.9 Obesity, unspecified; M85.80 Other specified disorders of bone density and structure, unspecified site; E55.9 Vitamin D deficiency, unspecified; Z79.51 Long term (current) use of inhaled steroids; Z88.0 Allergy status to penicillin; Z88.5 Allergy status to narcotic agent; Z88.1 Allergy status to other antibiotic agents; Z79.899 Other long term (current) drug therapy; Z79.890 Hormone replacement therapy; Z90.49 Acquired absence of other specified parts of digestive tract; Z98.890 Other specified postprocedural states
CPT/HCPCS: 00731; J2250; J2405; J2704; J3490; J7120

== ENCOUNTER 2022-09-23 09:10 | Emergency (ER) | payer MEDICARE, OTHER ==
[2022-09-23 09:22] VITALS: BP 133/81; PULSE 81
[2022-09-23 09:58] LABS: ANION GAP 13.1 mmol/L (5-15)
[2022-09-23 10:15] LABS: RESPIRATORY SYNCYTIAL VIR NAA NEGATIVE (NEGATIVE)
[2022-09-23 10:18] LABS: CORONAVIRUS COVID-19 NAA POSITIVE (NEGATIVE)
== END 2022-09-23 11:30 | disposition home or self-care (01) ==
LOC: KA.ED 09:10
DX: U07.1 COVID-19 (principal); R05.1 Acute cough; I10 Essential (primary) hypertension; E78.00 Pure hypercholesterolemia, unspecified; E03.9 Hypothyroidism, unspecified; E66.9 Obesity, unspecified; Z68.33 Body mass index [BMI] 33.0-33.9, adult; Z88.1 Allergy status to other antibiotic agents; Z88.5 Allergy status to narcotic agent; Z88.0 Allergy status to penicillin; Z88.7 Allergy status to serum and vaccine; Z91.018 Allergy to other foods; Z79.899 Other long term (current) drug therapy; Z79.82 Long term (current) use of aspirin; Z90.49 Acquired absence of other specified parts of digestive tract; Z90.710 Acquired absence of both cervix and uterus
CPT/HCPCS: 0241U; 36415; 71046; 80053; 85025; 99283; 99284

== ENCOUNTER 2022-10-19 19:30 | Emergency (ER) | payer MEDICARE, OTHER ==
[2022-10-19] MEDS ORDERED: Sodium Chloride 0.9% 10 ML Syringe FLUSH PRN (19:38)
[2022-10-19 20:40] LABS: ANION GAP 9.9 mmol/L (5-15)
[2022-10-19] MEDS: Ketorolac 30 MG/ML SDV IM ONE (20:40)
[2022-10-19 21:17] VITALS: BP 147/73; PULSE 70
== END 2022-10-19 21:32 | disposition home or self-care (01) ==
LOC: KA.ED 19:30
DX: R07.89 Other chest pain (principal); R07.81 Pleurodynia; E78.00 Pure hypercholesterolemia, unspecified; I10 Essential (primary) hypertension; K21.9 Gastro-esophageal reflux disease without esophagitis; E66.9 Obesity, unspecified; Z68.33 Body mass index [BMI] 33.0-33.9, adult; Z88.1 Allergy status to other antibiotic agents; Z88.8 Allergy status to other drugs, medicaments and biological substances; Z88.5 Allergy status to narcotic agent; Z88.0 Allergy status to penicillin; Z91.018 Allergy to other foods; Z91.048 Other nonmedicinal substance allergy status; Z79.899 Other long term (current) drug therapy; Z79.82 Long term (current) use of aspirin
CPT/HCPCS: 36415; 71045; 80053; 82150; 83605; 83690; 83880; 84484; 85025; 85379; 86140; 93010; 96372; 99284; J1885